=== PATIENT | female | born 1975 | race Caucasian/White ===

== ENCOUNTER → 2016-03-08 | Outpatient (CLI) | payer OTHER ==
--- NOTE | 2016-03-08 10:15 | XR ---
EXAMINATION TYPE: XR hand complete bilateral DATE OF EXAM: 03/08/2016 10:11 AM CLINICAL HISTORY: Bilateral hand pain. Evaluate for arthritis per patient. TECHNIQUE: Frontal, lateral and oblique images of the bilateral hands are obtained. COMPARISON: None. FINDINGS: There is no acute fracture/dislocation evident in either hand. The joint spaces in the santiago ateral hands appear within normal limits without suspicious narrowing or spurring identified. The ov erlying soft tissue appears unremarkable bilaterally. IMPRESSION: Unremarkable study
--- NOTE | 2016-03-08 10:17 | MR ---
EXAMINATION TYPE: MR lumbar spine wo con DATE OF EXAM: 03/08/2016 9:43 AM COMPARISON: NONE HISTORY: Lumbago, pain hips and knees TECHNIQUE: Multiplanar, multisequence images of the lumbar spine were acquired. L1-L2: Normal disc appearance without desiccation. No herniation, protrusion or disc bulging. No ca nal stenosis is present. Foramina are patent bilaterally. L2-L3: Normal disc appearance without desiccation. No herniation, protrusion or disc bulging. No ca nal stenosis is present. Foramina are patent bilaterally. L3-L4: Normal disc appearance without desiccation. No herniation, protrusion or disc bulging. No ca nal stenosis is present. Foramina are patent bilaterally. L4-L5: Broad-based central disc bulging with no canal stenosis or foraminal encroachment. L5-S1: Normal disc appearance without desiccation. No herniation, protrusion or disc bulging. No ca nal stenosis is present. Foramina are patent bilaterally. Lumbar segments are intact. No paraspinal masses are identified. Conus medullaris has a normal appe arance. IMPRESSION: At L4-L5 there is mild broad-based central disc bulging with no foraminal encroachment or canal steno sis.
[2016-03-08 10:43] LABS: Basophils # (A) 0.1 k/uL (0-0.2); Basophils % (A) 1 %; CH 30.1; CHCM 34.9; Eosinophils # (A) 0.3 k/uL (0-0.7); Eosinophils % (A) 4 %; HCT 38.5 % (34.0-46.0); HGB 13.2 gm/dL (11.4-16.0); Luc # (Auto) 0.12; Luc % (Auto) 2; Lymphocytes # (A) 1.9 k/uL (1.0-4.8); Lymphocytes % (A) 28 %; MCH 29.7 pg (25.0-35.0); MCHC 34.3 g/dL (31.0-37.0); MCV 86.5 fL (80.0-100.0); Mean Platelet Volume 6.2; Monocytes # (A) 0.3 k/uL (0-1.0); Monocytes % (A) 5 %; Neutrophils # (A) 4.1 k/uL (1.3-7.7); Neutrophils % (A) 61 %; RBC 4.45 m/uL (3.80-5.40); RDW 12.4 % (11.5-15.5); WBC 6.8 k/uL (3.8-10.6); WBC (Perox) 7.02
[2016-03-08 11:29] LABS: ALT 27 U/L (9-52); AST 16 U/L (14-36); Alkaline Phosphatase 68 U/L (38-126); Anion Gap 11 mmol/L; Blood Urea Nitrogen 13 mg/dL (7-17); C Reactive Protein 12.6 mg/L (<10.0); Calcium 9.2 mg/dL (8.4-10.2); Carbon Dioxide 26 mmol/L (22-30); Chloride 105 mmol/L (98-107); Creatine Kinase 79 U/L (30-135); Glucose 88 mg/dL (74-99); Non-African American GFR(MDRD) >60 (>60 ml/min/1.73 sqM); Sodium 142 mmol/L (137-145); Total Bilirubin 0.7 mg/dL (0.2-1.3); Total Protein 7.1 g/dL (6.3-8.2)
[2016-03-08 11:32] LABS: Rheumatoid Factor, Qnt <9 IU/mL (<12)
[2016-03-08 12:16] LABS: Vitamin B12 304 pg/mL (239-931)
[2016-03-08 14:47] LABS: Erythrocyte Sedimentation Rate 16 mm/hr (0-20)
[2016-03-08 16:05] LABS: Treponemal Ab Non-Reactive (Non-Reactive)
[2016-03-08 17:48] LABS: ANA w/Reflex to Titer NEGATIVE (NEGATIVE)
== END | disposition home or self-care (01) ==
LOC: RADMRIMAIN 08:47
PROVIDERS: ATTEND Psychiatry & Neurology Pain Medicine
DX: M51.26 Other intervertebral disc displacement, lumbar region (principal); M79.641 Pain in right hand; M79.642 Pain in left hand; M25.50 Pain in unspecified joint; M25.40 Effusion, unspecified joint
CPT/HCPCS: 72148; 80053; 82306; 82550; 82607; 84207; 84439; 84443; 84481; 85025; 85652; 86038; 86140; 86225; 86334; 86431; 86780

== ENCOUNTER 2017-01-11 10:48 | Emergency (ER) | payer OTHER ==
[2017-01-11] MEDS ORDERED: ONDANSETRON ODT 4 MG TAB PO STA (11:38)
[2017-01-11] MEDS ORDERED: HYDROmorphone 1 MG/ML 1 ML SYRINGE IM STA (11:38)
[2017-01-11] MEDS ORDERED: KETOROLAC 60 MG/2 ML VIAL IM STA (11:38)
--- NOTE | 2017-01-11 11:50 | ED ---
General Adult HPI - General Chief complaint: Extremity Problem,Nontraumatic Stated complaint: BOTH FEET AND LEFT HAND PAIN Source: patient, RN notes reviewed Mode of arrival: wheelchair Limitations: physical limitation - History of Present Illness Initial comments: This is a 41-year-old female who comes in complaining of chronic foot pain bilaterally. Patient states she's had it for many years and is intermittent in nature. Patient states she would just like a pain shot now she can follow up with a neurologist because the pain is extremely bad per patient states his been no trauma to the feet. Patient states there is no change in the appearance of her feet. Patient states she has a pain contract with Dr. Freeman so she cannot take a prescription home. Patient denies any fever chills per patient denies any new swelling or edema. Patient denies any area of redness. Patient states she is a wound on the left foot that she just left the wound center for and it is doing fine according to the wound doctor. - Related Data Home Medications Medication Instructions Recorded Confirmed Armodafinil [Nuvigil] 150 mg PO DAILY 01/11/17 01/11/17 Cholecalciferol [Vitamin D3] 1,000 unit PO DAILY 01/11/17 01/11/17 Cyclobenzaprine [Flexeril] 10 mg PO HS 01/11/17 01/11/17 Dolutegravir Sodium [Tivicay] 50 mg PO DAILY 01/11/17 01/11/17 Emtricitabine/Tenofovir (Tdf) 1 tab PO DAILY 01/11/17 01/11/17 [Truvada 200 mg-300 mg Tablet] Meloxicam [Mobic] 7.5 mg PO BID PRN 01/11/17 01/11/17 Naproxen [Naprosyn] 500 mg PO Q12HR 01/11/17 01/11/17 Nortriptyline HCl [Pamelor] 50 mg PO HS 01/11/17 01/11/17 traMADol HCL [Ultram] 50 mg PO TID PRN 01/11/17 01/11/17 Allergies Allergy/AdvReac Type Severity Reaction Status Date / Time Penicillins Allergy Swelling Verified 01/11/17 11:18 sulfamethoxazole AdvReac Unknown Verified 01/11/17 11:18 [From Bactrim] trimethoprim [From Bactrim] AdvReac Unknown Verified 01/11/17 11:18 Review of Systems ROS Statement: Those systems with pertinent positive or pertinent negative responses have been documented in the HPI. ROS Other: All systems not noted in ROS Statement are negative. Past Medical History Past Medical History: Asthma Additional Past Medical History / Comment(s): HIV positive, complication from gallbladder surg. in Oct., ended up w/bile leak. History of Any Multi-Drug Resistant Organisms: None Reported Past Surgical History: Section, Cholecystectomy, Tubal Ligation, Uterine Ablation Past Anesthesia/Blood Transfusion Reactions: No Reported Reaction Past Psychological History: No Psychological Hx Reported Smoking Status: Current every day smoker Past Alcohol Use History: None Reported Past Drug Use History: None Reported - Past Family History Mother Family Medical History: No Reported History General Exam - General Exam Comments Initial Comments: GENERAL: Patient is well-developed and well-nourished. Patient is nontoxic and well- hydrated and is in moderate distress. ENT: Neck is soft and supple. No significant lymphadenopathy is noted. Oropharynx is clear. Moist mucous membranes. Neck has full range of motion without eliciting any pain. EYES: The sclera were anicteric and conjunctiva were pink and moist. Extraocular movements were intact and pupils were equal round and reactive to light. Eyelids were unremarkable. SKIN: Skin is clear with no lesions or rashes and otherwise unremarkable. NEUROLOGIC: Patient is alert and oriented x3. Cranial nerves II through XII are grossly intact. Motor and sensory are also intact. Normal speech, volume and content. Symmetrical smile. MUSCULOSKELETAL: Normal extremities with adequate strength and full range of motion. 2+ swelling bilaterally patient's feet are are tender to touch. Patient states this is chronic LYMPHATICS: No significant lymphadenopathy is noted PSYCHIATRIC: Normal psychiatric evaluation. Limitations: physical limitation Course Vital Signs 01/11/17 10:58 Temperature 97.8 F Pulse Rate 109 H Respiratory 17 Rate Blood Pressure 144/77 O2 Sat by Pulse 100 Oximetry Disposition Clinical Impression: Chronic foot pain Disposition: HOME SELF-CARE Condition: Good Instructions: Chronic Pain (ED) Referrals: Juanita Angel MD [Primary Care Provider] - 1-2 days Time of Disposition: 11:59
[2017-01-11 12:32] VITALS: BP 119/69; PULSE 100; RESP 16; TEMP 97.9
== END 2017-01-11 12:30 | disposition home or self-care (01) ==
LOC: EC 10:48
DX: M79.671 Pain in right foot (principal); M79.672 Pain in left foot; G89.29 Other chronic pain; Z21 Asymptomatic human immunodeficiency virus [HIV] infection status; F17.200 Nicotine dependence, unspecified, uncomplicated; Z79.1 Long term (current) use of non-steroidal anti-inflammatories (NSAID); Z79.899 Other long term (current) drug therapy; Z88.0 Allergy status to penicillin; Z88.2 Allergy status to sulfonamides
CPT/HCPCS: 99283; 96372 ×2; J1885; J1170

== ENCOUNTER → 2017-11-10 | Outpatient (CLI) | payer OTHER ==
--- NOTE | 2017-11-10 19:25 | MR ---
EXAMINATION TYPE: MR brain wo/w con DATE OF EXAM: 11/10/2017 COMPARISON: None HISTORY: Involuntary movements TECHNIQUE: Multiplanar, multisequence images of the brain and brainstem is performed without and with IV contras t, utilizing 8.5 mL intravenous Gadavist . FINDINGS: Craniovertebral junction is normal. Pituitary is normal. Diffusion-weighted imaging is performed. No suspicious hyperintensity is present suggest acute intrac ranial change. Normal vascular flow voids are within the visualized intracranial cerebral vasculature. There is some mild increased signal on T2 and inversion recovery weighted sequences within knee brainstem and left pasty. This could be some microvascular ischemic change. Couple of punctate hyperintensities are with in the right beck radiata. There is subcortical white matter change in the right centrum semiovale. Series 501 image 24. Signal within the brain otherwise appears unremarkable. Postcontrast imaging is performed. No suspicious enhancement is evident. Note is made of some subcutaneous nodules near the vertex, correlate for sebaceous cysts. IMPRESSION: Mild white matter signal change which is nonspecific. Chronic white matter ischemic hedrick es most likely within the differential. Multiple sclerosis could be considered. This is somewhat more focal within the brainstem. Correlate with symptoms.
== END | disposition home or self-care (01) ==
LOC: RADMRIMAIN 11:33
PROVIDERS: ATTEND Psychiatry & Neurology Neurology
DX: R90.82 White matter disease, unspecified (principal); Z88.0 Allergy status to penicillin
CPT/HCPCS: 70553; A9581

== ENCOUNTER 2017-12-09 10:33 | Emergency (ER) | payer OTHER ==
[2017-12-09 10:39] VITALS: BP 154/95; PULSE 85; RESP 16; TEMP 98.3
[2017-12-09] MEDS ORDERED: PROPARACAINE 0.5% OPHTH DROPS 15 ML BTL BOTH EYES STA (10:42)
--- NOTE | 2017-12-09 11:15 | ED ---
General Adult HPI - General Chief complaint: Eye Problems Stated complaint: Eye infection Time Seen by Provider: 12/09/17 10:42 Source: patient, RN notes reviewed, old records reviewed Mode of arrival: ambulatory Limitations: no limitations - History of Present Illness Initial comments: 42-year-old female presenting with painful and swollen left eye. Patient's symptoms began 3 days prior to presentation. She has been seen by her primary care physician who prescribed tobramycin eyedrops. She was reevaluated yesterday and told to follow-up with ophthalmology. This morning she presented to an outside emergency department who again told her to follow-up with ophthalmology. Patient is presenting to this emergency department for reevaluation. She denies fever or chills. Denies headache. Complains of pain and swelling in the left eye. Denies significant vision changes. Denies symptoms in her right eye. Denies previous issues with this eye. She is HIV positive and has been compliant with her antiviral medication. - Related Data Home Medications Medication Instructions Recorded Confirmed Cholecalciferol [Vitamin D3] 1,000 unit PO DAILY 01/11/17 12/09/17 Meloxicam [Mobic] 7.5 mg PO BID PRN 01/11/17 12/09/17 Nortriptyline HCl [Pamelor] 100 mg PO HS 01/11/17 12/09/17 traMADol HCL [Ultram] 50 mg PO BID 01/11/17 12/09/17 Probenecid [Benemid] 500 mg PO BID 02/03/17 12/09/17 Elviteg/Cob/Emtri/Tenof Alafen 1 tab PO DAILY 12/09/17 12/09/17 [Genvoya Tablet] Furosemide [Lasix] 20 mg PO DAILY 12/09/17 12/09/17 Tobramycin 0.3% Ophth Soln [Tobrex 2 drop LEFT EYE QID 12/09/17 12/09/17 0.3% Ophth Soln] traMADol HCL [Ultram] 100 mg PO HS 12/09/17 12/09/17 Previous Rx's Medication Instructions Recorded Clindamycin [Cleocin] 300 mg PO Q6H #40 capsule 12/09/17 Ibuprofen [Motrin] 600 mg PO Q8HR PRN #24 tab 12/09/17 Allergies Allergy/AdvReac Type Severity Reaction Status Date / Time naproxen [From Naprosyn] Allergy Rash/Hives Verified 12/09/17 11:21 Penicillins Allergy Swelling Verified 12/09/17 11:21 sulfamethoxazole AdvReac Unknown Verified 12/09/17 11:21 [From Bactrim] trimethoprim [From Bactrim] AdvReac Unknown Verified 12/09/17 11:21 Review of Systems ROS Statement: Those systems with pertinent positive or pertinent negative responses have been documented in the HPI. ROS Other: All systems not noted in ROS Statement are negative. Past Medical History Past Medical History: Asthma Additional Past Medical History / Comment(s): HIV positive, complication from gallbladder surg. in Oct., ended up w/bile leak. History of Any Multi-Drug Resistant Organisms: None Reported Past Surgical History: Section, Cholecystectomy, Tubal Ligation, Uterine Ablation Past Anesthesia/Blood Transfusion Reactions: No Reported Reaction Past Psychological History: No Psychological Hx Reported Smoking Status: Current every day smoker Past Alcohol Use History: None Reported Past Drug Use History: None Reported - Past Family History Mother Family Medical History: No Reported History General Exam Limitations: no limitations General appearance: alert, in no apparent distress Head exam: Present: atraumatic, normocephalic Eye exam: Present: PERRL, EOMI (Extraocular motions are intact, there is mild pain in the left eye with movement.), conjunctival injection (Conjunctival chemosis and hemorrhage), periorbital swelling (Mild soft tissue swelling). Absent: nystagmus Neck exam: Present: normal inspection, tenderness, full ROM. Absent: meningismus Respiratory exam: Present: normal lung sounds bilaterally, respiratory distress Cardiovascular Exam: Present: regular rate, normal rhythm GI/Abdominal exam: Present: soft. Absent: distended, tenderness Extremities exam: Present: normal inspection, normal capillary refill Back exam: Present: normal inspection. Absent: full ROM, tenderness Course Vital Signs 12/09/17 10:36 Temperature 98.3 F Pulse Rate 85 Respiratory 16 Rate Blood Pressure 154/95 O2 Sat by Pulse 99 Oximetry Medical Decision Making - Medical Decision Making Eye exam: The patient has 20/50 vision in the left eye, 20/20/50 in the right eye, and 20/40 bilateral. Intraocular pressure in the left eye is 12 which is normal. On exam there is pronounced chemosis and some conjunctival hemorrhage. Anterior chamber appears clear, pupil is reactive, with fluorescein staining there is no corneal uptake. Extraocular motions are intact. Given the patient' s HIV status I did discuss this case with ophthalmology on-call, Dr. Velasco, feels patient is stable for outpatient follow-up. Recommends oral antibiotics for soft tissue swelling, Motrin for pain, and cold compresses. Disposition Clinical Impression: Periorbital cellulitis, Subconjunctival hemorrhage of left eye, Chemosis of conjunctiva of both eyes, Chemosis of left conjunctiva Disposition: HOME SELF-CARE Condition: Good Instructions: Conjunctivitis (ED), Periorbital Cellulitis in Adults (ED) Prescriptions: Clindamycin [Cleocin] 300 mg PO Q6H #40 capsule Ibuprofen [Motrin] 600 mg PO Q8HR PRN #24 tab PRN Reason: Pain Is patient prescribed a controlled substance at d/c from ED?: No Referrals: Juanita Angel MD [Primary Care Provider] - 1-2 days Nils Velasco MD [STAFF PHYSICIAN] - 1-2 days Time of Disposition: 12:01
== END 2017-12-09 12:04 | disposition home or self-care (01) ==
LOC: EC 10:33
DX: H11.32 Conjunctival hemorrhage, left eye (principal); H11.423 Conjunctival edema, bilateral; L03.213 Periorbital cellulitis; F17.200 Nicotine dependence, unspecified, uncomplicated; Z21 Asymptomatic human immunodeficiency virus [HIV] infection status; Z79.899 Other long term (current) drug therapy; Z88.6 Allergy status to analgesic agent; Z88.0 Allergy status to penicillin; Z88.2 Allergy status to sulfonamides
CPT/HCPCS: 99283

== ENCOUNTER → 2017-12-12 | Outpatient (CLI) | payer OTHER ==
[2017-12-12 09:52] LABS: Basophils # (A) 0.1 k/uL (0-0.2); Basophils % (A) 1 %; Eosinophils # (A) 0.2 k/uL (0-0.7); Eosinophils % (A) 4 %; HCT 39.8 % (34.0-46.0); HGB 13.4 gm/dL (11.4-16.0); Lymphocytes # (A) 1.5 k/uL (1.0-4.8); Lymphocytes % (A) 23 %; MCH 29.5 pg (25.0-35.0); MCHC 33.7 g/dL (31.0-37.0); MCV 87.5 fL (80.0-100.0); Mean Platelet Volume 6.1; Monocytes # (A) 0.3 k/uL (0-1.0); Monocytes % (A) 5 %; Neutrophils # (A) 4.3 k/uL (1.3-7.7); Neutrophils % (A) 66 %; Platelet Count 289 k/uL (150-450); RBC 4.55 m/uL (3.80-5.40); RDW 14.3 % (11.5-15.5); WBC 6.5 k/uL (3.8-10.6)
[2017-12-12 10:14] LABS: Blood Urea Nitrogen 12 mg/dL (7-17)
--- NOTE | 2017-12-12 11:14 | CT ---
EXAMINATION TYPE: CT facial bones w con DATE OF EXAM: 12/12/2017 COMPARISON: MR brain 11/10/2017 HISTORY: Lt orbital cellulitis CT DLP: 578 mGycm Automated exposure control for dose reduction was used. CONTRAST: CT scan of the facial bones is performed with IV Contrast, patient injected with 100 mL of Isovue 300 . TECHNIQUE: CT scan of the sinuses is performed without contrast, axial images are obtained, coronal r eformatted images are also reviewed. FINDINGS: The paranasal sinuses including the frontal, ethmoid, sphenoid, and maxillary sinuses bila terally are well-aerated without abnormal opacification. The ostiomeatal complex is patent bilateral ly on the coronal images. Visualized portion of mastoid air cells show no abnormal opacification. The globes are intact bilate rally. Towards the convexity of the left of midline there is a probable sebaceous cyst within the sca lp measuring 15 mm possible partial calcification. The orbits show symmetric appearance. No intraconal mass or inflammatory change. Globes are symmetric and unremarkable. Question some mild inflammatory change at the level of the preseptal location of t he left orbit. IMPRESSION: The sinuses are clear and the ostiomeatal complex is patent bilaterally. No orbital absc ess evident.
== END ==
LOC: RADCTMAIN 09:04
PROVIDERS: ATTEND Optometrist
DX: H05.012 Cellulitis of left orbit (principal)
CPT/HCPCS: 82565; 84520; 85025; 70487; 36415; Q9967

== ENCOUNTER → 2018-02-13 | Outpatient (CLI) | payer OTHER ==
[2018-02-15 12:41] LABS: IgG - CSF 1.9 mg/dL (0.0 - 3.4); IgG/Albumin Index (CSF) 0.47 (0.00 - 0.77); Immunoglobulin G 887 mg/dL (700 - 1600)
== END | disposition home or self-care (01) ==
LOC: LABWHC1 09:49
PROVIDERS: ATTEND Psychiatry & Neurology Pain Medicine
DX: R90.82 White matter disease, unspecified (principal)
CPT/HCPCS: 36415; 82040; 82042; 82784; 83916

== ENCOUNTER → 2018-03-30 | Outpatient (CLI) | payer OTHER ==
[2018-03-30 10:09] LABS: Basophils # (A) 0.1 k/uL (0-0.2); Basophils % (A) 1 %; Eosinophils # (A) 0.5 k/uL (0-0.7); Eosinophils % (A) 7 %; HCT 37.7 % (34.0-46.0); HGB 12.2 gm/dL (11.4-16.0); Lymphocytes % (A) 30 %; MCH 28.4 pg (25.0-35.0); MCHC 32.3 g/dL (31.0-37.0); MCV 87.8 fL (80.0-100.0); Mean Platelet Volume 6.2; Monocytes # (A) 0.3 k/uL (0-1.0); Monocytes % (A) 5 %; Neutrophils # (A) 3.8 k/uL (1.3-7.7); Neutrophils % (A) 55 %; Platelet Count 211 k/uL (150-450); RDW 14.5 % (11.5-15.5); WBC 6.9 k/uL (3.8-10.6)
[2018-03-30 11:06] LABS: Erythrocyte Sedimentation Rate 17 mm/hr (0-20)
[2018-03-30 17:55] LABS: Anion Gap 6.3 mmol/L (4.00-12.00); C Reactive Protein 1.6 mg/dL (0.0-0.8); Carbon Dioxide 28.7 mmol/L (21.6-31.8); Potassium 4.6 mmol/L (3.5-5.5)
[2018-03-31 11:08] LABS: T4/T8 Ratio (CD4:CD8) 1.7 (1.0-3.7)
[2018-04-02 14:18] LABS: HIV-1 RNA Not detected (Not detected); HIV-1 RNA, Quant <40 Copies/mL (<40)
== END ==
LOC: LABWHC1 09:11
PROVIDERS: ATTEND Internal Medicine Infectious Disease
DX: M25.50 Pain in unspecified joint (principal); B20 Human immunodeficiency virus [HIV] disease
CPT/HCPCS: 36415; 80048; 85025; 85652; 86140; 86360; 87536

== ENCOUNTER → 2018-07-02 | Outpatient (CLI) | payer OTHER ==
[2018-07-02 17:46] LABS: Iron Saturation 13.33 (12.00-45.00)
[2018-07-02 17:47] LABS: Anti-DNA, DS unit <1.0 IU/mL; DNA Double-Stranded NEGATIVE (NEGATIVE); RNP <0.2 AI; Scleroderma SC-70 Ab <0.2 AI
[2018-07-02 17:54] LABS: Folate, Serum 9.1 ng/mL
[2018-07-03 13:25] LABS: Histone Antibody 0.2 UNITS (<1.0)
== END | disposition home or self-care (01) ==
LOC: LAB 08:06
PROVIDERS: ATTEND Psychiatry & Neurology Neurology
DX: M25.50 Pain in unspecified joint (principal); R53.83 Other fatigue
CPT/HCPCS: 82607; 82728; 82746; 83516; 83540; 83550; 84207; 84425; 84439; 84443; 84466; 84481; 84591; 85652; 86038; 86140; 86200; 86225; 86235

== ENCOUNTER → 2018-07-31 | Outpatient (CLI) | payer OTHER ==
[2018-07-31 09:05] LABS: Basophils # (A) 0.1 k/uL (0-0.2); Basophils % (A) 1 %; Eosinophils # (A) 0.6 k/uL (0-0.7); Eosinophils % (A) 8 %; HCT 40.2 % (34.0-46.0); HGB 13.4 gm/dL (11.4-16.0); Lymphocytes # (A) 1.7 k/uL (1.0-4.8); Lymphocytes % (A) 23 %; MCHC 33.3 g/dL (31.0-37.0); MCV 87.2 fL (80.0-100.0); Mean Platelet Volume 6.8; Monocytes # (A) 0.4 k/uL (0-1.0); Monocytes % (A) 5 %; Neutrophils # (A) 4.5 k/uL (1.3-7.7); Neutrophils % (A) 61 %; Platelet Count 235 k/uL (150-450); RBC 4.61 m/uL (3.80-5.40); RDW 14.2 % (11.5-15.5); WBC 7.3 k/uL (3.8-10.6)
[2018-07-31 16:36] LABS: Albumin 4.5 g/dL (3.80-4.90); Albumin/Globulin Ratio 2.25 (1.60-3.17); Anion Gap 7.8 mmol/L (4.00-12.00); Calcium 9.3 mg/dL (8.7-10.3); Carbon Dioxide 25.2 mmol/L (21.6-31.8); Potassium 3.9 mmol/L (3.5-5.5); Total Bilirubin 0.6 mg/dL (0.3-1.2); Total Protein 6.5 g/dL (6.2-8.2)
== END ==
LOC: LABWHC1 08:21
PROVIDERS: ATTEND Psychiatry & Neurology Pain Medicine
DX: Z51.81 Encounter for therapeutic drug level monitoring (principal); R79.9 Abnormal finding of blood chemistry, unspecified
CPT/HCPCS: 36415; 80053; 85025

== ENCOUNTER 2018-12-01 03:53 | Emergency (ER) | payer OTHER ==
--- NOTE | 2018-12-01 04:17 | ED ---
ENT HPI - General Chief complaint: Dental/Oral Stated complaint: Dental Abscess Time Seen by Provider: 12/01/18 04:16 Source: patient Mode of arrival: ambulatory Limitations: no limitations - History of Present Illness Initial comments: Romana is a 43-year-old female past medical history of HIV which is well controlled with oral medications. Patient reports that her viral load is undetectable and her CD4 count was normal. Patient presents the emergency department today for evaluation of dental pain. Patient has multiple dental caries and broken teeth. Patient states over the past 2 days she's noticed progressive swelling of her right lower jaw around the broken teeth with significant pain. Patient's been taking her home pain medications with no relief. Patient came to the ER today for evaluation of possible dental infection. - Related Data Home Medications Medication Instructions Recorded Confirmed Meloxicam [Mobic] 7.5 mg PO BID PRN 01/11/17 12/01/18 Nortriptyline HCl [Pamelor] 100 mg PO HS 01/11/17 12/01/18 traMADol HCL [Ultram] 50 mg PO BID 01/11/17 12/01/18 Probenecid [Benemid] 500 mg PO BID 02/03/17 12/01/18 Elviteg/Cob/Emtri/Tenof Alafen 1 tab PO DAILY 12/09/17 12/01/18 [Genvoya Tablet] Furosemide [Lasix] 20 mg PO DAILY 12/09/17 12/01/18 Previous Rx's Medication Instructions Recorded Ibuprofen [Motrin] 600 mg PO Q8HR PRN #24 tab 12/09/17 Clindamycin [Cleocin] 450 mg PO Q6H #120 capsule 12/01/18 Allergies Allergy/AdvReac Type Severity Reaction Status Date / Time naproxen [From Naprosyn] Allergy Rash/Hives Verified 12/09/17 11:21 Penicillins Allergy Swelling Verified 12/09/17 11:21 sulfamethoxazole AdvReac Unknown Verified 12/09/17 11:21 [From Bactrim] trimethoprim [From Bactrim] AdvReac Unknown Verified 12/09/17 11:21 Review of Systems ROS Statement: Those systems with pertinent positive or pertinent negative responses have been documented in the HPI. ROS Other: All systems not noted in ROS Statement are negative. Past Medical History Past Medical History: Asthma Additional Past Medical History / Comment(s): HIV positive, complication from gallbladder surg. in Oct., ended up w/bile leak. History of Any Multi-Drug Resistant Organisms: None Reported Past Surgical History: Section, Cholecystectomy, Hernia Repair, Tubal Ligation, Uterine Ablation Past Anesthesia/Blood Transfusion Reactions: No Reported Reaction Past Psychological History: No Psychological Hx Reported Smoking Status: Current every day smoker Past Alcohol Use History: None Reported Past Drug Use History: None Reported - Past Family History Mother Family Medical History: No Reported History General Exam - General Exam Comments Initial Comments: Physical Exam GENERAL: Patient is well-developed and well-nourished. Patient is nontoxic and well-hydrated and is in no distress. HENT: Normocephalic, Atraumatic. Teeth 29-32 fractured with carries - surrounding erythema Obvious abscess EYES: PERRL, EOMI PULMONARY: Unlabored respirations. CARDIOVASCULAR: RRR ABDOMEN: Nondistended SKIN: Skin is clear with no lesions or rashes and otherwise unremarkable. : Deferred NEUROLOGIC: Patient is alert and oriented x3. Moving all extremities spontaneously MUSCULOSKELETAL: Normal extremities with adequate strength and full range of motion. No lower extremity swelling or edema. No calf tenderness. PSYCHIATRIC: Normal psychiatric evaluation. Limitations: no limitations Course Vital Signs 12/01/18 12/01/18 03:58 05:32 Temperature 97.4 F L 97.6 F Pulse Rate 58 L 60 Respiratory 20 18 Rate Blood Pressure 187/92 164/72 O2 Sat by Pulse 98 98 Oximetry Procedures - Nerve Block Consent Obtained: verbal consent Local Anesthetic Used: Marcaine 0.5% Side: right Intraoral Nerve Block: inferior alveolar Procedure Successful: Yes Complications: none Patient Tolerated Procedure: well Medical Decision Making - Medical Decision Making Was seen and evaluated history is obtained from patient The patient has an ALLERGY to penicillin and therefore will be treated with clin damycin for dental infection Risks and benefits of dental block including benefit of analgesia and risk of bleeding, infection, permanent nerve damage discussed with the patient. Patient would like to receive a dental block Nerve block was performed and was successful patient had significant relief of her discomfort and was comfortable with plan for discharge home and outpatient follow-up patient was referred to the dental clinic Disposition Clinical Impression: Dental caries, Fracture of tooth Disposition: HOME SELF-CARE Condition: Stable Instructions (If sedation given, give patient instructions): Dental Abscess (ED), Toothache (ED) Additional Instructions: Please follow up with the [facility]. [address] [place] [address]. Phone number for new patients or [phone] for existing patients. [facility]. Must pay for x-rays then services are free. Call for an appoitnment. Prescriptions: Clindamycin [Cleocin] 450 mg PO Q6H #120 capsule Is patient prescribed a controlled substance at d/c from ED?: No Referrals: Juanita Angel MD [Primary Care Provider] - 1-2 days
[2018-12-01] MEDS ORDERED: BUPIVACAINE (PF) 0.5% 30 ML VIAL SQ STA (04:34)
[2018-12-01] MEDS ORDERED: LIDOCAINE 1% INJ 10MG/ML (20 ML MDV) SQ ONE (04:34)
[2018-12-01] MEDS ORDERED: CLINDAMYCIN 150 MG CAP PO STA (04:47)
[2018-12-01 05:35] VITALS: BP 164/72; PULSE 60; RESP 18; TEMP 97.6
== END 2018-12-01 05:35 | disposition home or self-care (01) ==
LOC: EC 03:53
DX: K02.9 Dental caries, unspecified (principal); S02.5XXA Fracture of tooth (traumatic), initial encounter for closed fracture; K04.7 Periapical abscess without sinus; F17.200 Nicotine dependence, unspecified, uncomplicated; Z21 Asymptomatic human immunodeficiency virus [HIV] infection status; Z79.899 Other long term (current) drug therapy; Z88.0 Allergy status to penicillin; Z88.1 Allergy status to other antibiotic agents; Z88.2 Allergy status to sulfonamides; Z88.6 Allergy status to analgesic agent; X58.XXXA Exposure to other specified factors, initial encounter
CPT/HCPCS: 99282; 64400; J2001

== ENCOUNTER 2018-12-01 13:55 | Observation (INO) | payer OTHER ==
[2018-12-01 15:03] LABS: Basophils # (A) 0.1 k/uL (0-0.2); Basophils % (A) 1 %; Eosinophils # (A) 0.3 k/uL (0-0.7); Eosinophils % (A) 3 %; HCT 39.1 % (34.0-46.0); HGB 13.6 gm/dL (11.4-16.0); Lymphocytes # (A) 1.8 k/uL (1.0-4.8); Lymphocytes % (A) 16 %; MCHC 34.9 g/dL (31.0-37.0); MCV 88.6 fL (80.0-100.0); Mean Platelet Volume 5.2; Monocytes # (A) 0.5 k/uL (0-1.0); Monocytes % (A) 5 %; Neutrophils # (A) 8.9 k/uL (1.3-7.7); Neutrophils % (A) 76 %; Platelet Count 270 k/uL (150-450); RBC 4.41 m/uL (3.80-5.40); RDW 13.7 % (11.5-15.5); WBC 11.7 k/uL (3.8-10.6)
--- NOTE | 2018-12-01 15:03 | ED ---
ENT HPI - General Source: patient Mode of arrival: ambulatory Limitations: no limitations <Judit Farfan - Last Filed: 12/01/18 17:30> <Chelo Gabriel - Last Filed: 12/04/18 22:54> - General Chief complaint: Dental/Oral Stated complaint: dental abscess Time Seen by Provider: 12/01/18 14:00 - History of Present Illness Initial comments: Patient is a 43-year-old female with past medical history of HIV which is well controlled on oral medications, presenting to the emergency Department with complaints of worsening dental pain x 3 days. Patient was seen in the ER early this morning for same complaint and was started on oral clindamycin and follow up with the dental clinic. Patient did take one dose. Patient states returns today for worsening of her swelling and pain. Patient denies any trouble breath ing or swallowing at this time. Patient denies drooling. Patient denies fever, chills. States she is unable to eat secondary to the swelling and pain. Patient does report taking Ultram at home for pain without significant improvement in symptoms. Patient reports that her viral load is undetectable and her CD4 count was normal. Patient denies any other complaints at this time. Upon arrival to ER, vital signs are stable. (Judit Farfan) - Related Data Home Medications Medication Instructions Recorded Confirmed Nortriptyline HCl [Pamelor] 100 mg PO HS 01/11/17 12/01/18 traMADol HCL [Ultram] 50 mg PO QID 01/11/17 12/01/18 Probenecid [Benemid] 500 mg PO BID 02/03/17 12/01/18 Elviteg/Cob/Emtri/Tenof Alafen 1 tab PO DAILY 12/09/17 12/01/18 [Genvoya Tablet] Cholecalciferol [Vitamin D3 (25 1,000 unit PO DAILY 12/01/18 12/01/18 Mcg = 1000 Iu)] Loratadine [Claritin] 10 mg PO DAILY 12/01/18 12/01/18 Meloxicam [Mobic] 15 mg PO DAILY 12/01/18 12/01/18 Montelukast [Singulair] 10 mg PO HS 12/01/18 12/01/18 Orphenadrine [Norflex] 100 mg PO BID PRN 12/01/18 12/01/18 Previous Rx's Medication Instructions Recorded Clindamycin HCl [Cleocin] 600 mg PO Q8H 10 Days #60 cap 12/03/18 Allergies Allergy/AdvReac Type Severity Reaction Status Date / Time naproxen [From Naprosyn] Allergy Rash/Hives Verified 12/01/18 17:06 Penicillins Allergy Swelling Verified 12/01/18 17:06 sulfamethoxazole AdvReac Unknown Verified 12/01/18 17:06 [From Bactrim] trimethoprim [From Bactrim] AdvReac Unknown Verified 12/01/18 17:06 Review of Systems ROS Other: All systems not noted in ROS Statement are negative. <Judit Farfan - Last Filed: 12/01/18 17:30> ROS Other: All systems not noted in ROS Statement are negative. <Chelo Gabriel - Last Filed: 12/04/18 22:54> ROS Statement: Those systems with pertinent positive or pertinent negative responses have been documented in the HPI. Past Medical History Past Medical History: Asthma Additional Past Medical History / Comment(s): HIV positive, complication from gallbladder surg. in Oct., ended up w/bile leak. History of Any Multi-Drug Resistant Organisms: None Reported Past Surgical History: Section, Cholecystectomy, Hernia Repair, Tubal Ligation, Uterine Ablation Past Anesthesia/Blood Transfusion Reactions: No Reported Reaction Past Psychological History: No Psychological Hx Reported Smoking Status: Current every day smoker Past Alcohol Use History: None Reported Past Drug Use History: None Reported - Past Family History Mother Family Medical History: No Reported History <Judit Farfan - Last Filed: 12/01/18 17:30> General Exam Limitations: no limitations <Judit Farfan - Last Filed: 12/01/18 17:30> - General Exam Comments Initial Comments: GENERAL: Well-appearing, well-nourished and in no acute distress. HEAD: Atraumatic, normocephalic. EYES: Pupils equal round and reactive to light, extraocular movements intact, sclera anicteric, conjunctiva are normal. ENT: TMs normal, nares patent, oropharynx clear without exudates. Moist mucous membranes. No drooling. Teeth #29 and 30 with obvious tooth fractures and dental caries, surrounding erythema NECK: Normal range of motion, supple without lymphadenopathy or JVD. Mild swelling evident just below the right jawline into the right side of the neck. LUNGS: Breath sounds clear to auscultation bilaterally and equal. No wheezes rales or rhonchi. HEART: Regular rate and rhythm without murmurs, rubs or gallops. ABDOMEN: Soft, nontender, normoactive bowel sounds. No guarding, no rebound. No masses appreciated. : Deferred EXTREMITIES: Normal range of motion, no pitting or edema. No clubbing or cyanosis. NEUROLOGICAL: Cranial nerves II through XII grossly intact. Normal speech, normal gait. PSYCH: Normal mood, normal affect. SKIN: Warm, Dry, normal turgor, no rashes or lesions noted. (Judit Farfan) Course Vital Signs 12/01/18 12/01/18 13:56 17:43 Temperature 97.9 F Pulse Rate 77 78 Respiratory 18 16 Rate Blood Pressure 141/93 136/76 O2 Sat by Pulse 98 99 Oximetry Medical Decision Making - Lab Data Result diagrams: 12/01/18 14:43 12/01/18 14:43 <Judit Farfan - Last Filed: 12/01/18 17:30> - Lab Data Result diagrams: 12/03/18 07:36 12/03/18 07:36 <Chelo Gabriel - Last Filed: 12/04/18 22:54> - Medical Decision Making Patient is a 43-year-old female presenting with dental abscess 3 days. Patient was seen in the ER earlier this morning for same complaint was started on oral: The myosin. Patient returns today for severe increase in swelling and pain. Patient has past medical history of HIV is well controlled. I the signs are stable upon arrival, afebrile. On exam patient has severe right mandibular swelling and mild erythema. Teeth 29 and 30 are decayed and surrounding erythema. CBC shows slight leukocytosis of 11.7, CMP is normal. CRP is 23.2. Soft tissue neck CT was performed and shows right sided mandibular and some mandibular soft tissue swelling consistent with cellulitis. No abscess seen. Right maxillary sinusitis. Patient was given pain control. Case discussed with Dr. Gabriel who evaluated the patient and is in agreement with plan of care. Patient will be admitted for IV antibiotics and pain control. Dr. Avila accepted the patient. Patient was started on clindamycin IV. (Judit Farfan) I was available for consultation in the emergency department. The history and physical exam were done by the midlevel provider. [facility] I reviewed the case with the midlevel provider and based on their presentation of the patient, I agree with the assessment, medical decision making and plan of care as documented. I evaluated the patient myself. As she has rapid progression of her swelling, I did recommend admission to the hospital. Chart was dictated using [employer] dictation software. Attempts were made to correct any dictation errors however some typographical errors may persist. (Chelo Gabriel) - Lab Data Lab Results 12/01/18 12/01/18 12/01/18 Range/Units 14:43 14:43 14:43 WBC 11.7 H (3.8-10.6) k/uL RBC 4.41 (3.80-5.40) m/uL Hgb 13.6 (11.4-16.0) gm/dL Hct 39.1 (34.0-46.0) % MCV 88.6 (80.0-100.0) fL MCH 31.0 (25.0-35.0) pg MCHC 34.9 (31.0-37.0) g/dL RDW 13.7 (11.5-15.5) % Plt Count 270 (150-450) k/uL Neutrophils % 76 % Lymphocytes % 16 % Monocytes % 5 % Eosinophils % 3 % Basophils % 1 % Neutrophils # 8.9 H (1.3-7.7) k/uL Lymphocytes # 1.8 (1.0-4.8) k/uL Monocytes # 0.5 (0-1.0) k/uL Eosinophils # 0.3 (0-0.7) k/uL Basophils # 0.1 (0-0.2) k/uL ESR 15 (0-20) mm/hr Sodium 138 (137-145) mmol/L Potassium 4.4 (3.5-5.1) mmol/L Chloride 105 (98-107) mmol/L Carbon Dioxide 24 (22-30) mmol/L Anion Gap 9 mmol/L BUN 13 (7-17) mg/dL Creatinine 0.55 (0.52-1.04) mg/dL Est GFR (CKD-EPI)AfAm >90 (>60 ml/min/1.73 sqM) Est GFR (CKD-EPI)NonAf >90 (>60 ml/min/1.73 sqM) Glucose 93 (74-99) mg/dL Plasma Lactic Acid Fredrick 1.2 (0.7-2.0) mmol/L Calcium 9.1 (8.4-10.2) mg/dL Total Bilirubin 0.7 (0.2-1.3) mg/dL AST 35 (14-36) U/L ALT 28 (9-52) U/L Alkaline Phosphatase 92 (38-126) U/L C-Reactive Protein 23.2 H (<10.0) mg/L Total Protein 7.0 (6.3-8.2) g/dL Albumin 4.0 (3.5-5.0) g/dL Disposition Is patient prescribed a controlled substance at d/c from ED?: No Decision Date: 12/01/18 Decision Time: 16:51 <Judit Farfan - Last Filed: 12/01/18 17:30> <Chelo Gabriel - Last Filed: 12/04/18 22:54> Clinical Impression: Dental abscess, Facial cellulitis Disposition: ADMITTED IP TO THIS HOSP Condition: Good
[2018-12-01 15:09] LABS: ALT 28 U/L (9-52); AST 35 U/L (14-36); African American GFR (CKD) >90 (>60 ml/min/1.73 sqM); Alkaline Phosphatase 92 U/L (38-126); Anion Gap 9 mmol/L; Blood Urea Nitrogen 13 mg/dL (7-17); C Reactive Protein 23.2 mg/L (<10.0); Calcium 9.1 mg/dL (8.4-10.2); Carbon Dioxide 24 mmol/L (22-30); Chloride 105 mmol/L (98-107); Glucose 93 mg/dL (74-99); Potassium 4.4 mmol/L (3.5-5.1); Sodium 138 mmol/L (137-145); Total Bilirubin 0.7 mg/dL (0.2-1.3)
[2018-12-01] MEDS ORDERED: MORPHINE SULFATE 4 MG/ML SYRINGE IVP STA (15:17)
--- NOTE | 2018-12-01 15:32 | CT ---
EXAMINATION TYPE: CT soft tissue neck w con DATE OF EXAM: 12/01/2018 3:09 PM COMPARISON: None HISTORY: Right sided facial/mandibular swelling and pain. CT DLP: 283.9 mGycm Automated exposure control for dose reduction was used. CONTRAST: CT scan of the neck is performed following with IV Contrast, patient injected with 100ml mL of Isovue 300. Axial images are obtained, coronal and sagittal reformatted images are reviewed. FINDINGS: Superior mediastinum appears normal. There is normal branching pattern of the great vessels on the ao rtic arch. Thyroid gland is symmetric. There is contrast opacification of the vertebral arteries and the common internal and external carotid arteries. There is normal contrast opacification of the jugu lar veins. The trachea appears normal. Epiglottis appears normal. Subglottic trachea appears normal. Tonsils appear normal. There is symmetric parotid glands. Submandibular salivary glands are symmetric . There are submandibular bilateral lymph nodes that measure up to 11 mm. There is significant subcut aneous edema around the mandible on the right side. There is no discrete fluid collection. The mandib ular ring is intact. Maxilla is intact. Temporomandibular joints appear normal. Zygomatic arches are normal. There is fluid level right maxillary sinus. I see no bony destructive process.: The tongue ap pears normal. Adenoids appear normal. IMPRESSION: Right side. Mandibular and submandibular soft tissue swelling consistent with cellulitis and phlegmon. Minimal submandibular lymphadenopathy. No abscess. Right maxillary sinusitis.
[2018-12-01 16:00] LABS: Erythrocyte Sedimentation Rate 15 mm/hr (0-20)
[2018-12-01] MEDS ORDERED: ONDANSETRON 4 MG/2 ML VIAL IVP STA (16:25)
[2018-12-01] MEDS ORDERED: NALOXONE 0.4 MG/ML 1 ML VIAL IV PRN (16:46)
[2018-12-01] MEDS ORDERED: ACETAMINOPHEN TAB 325 MG TAB PO PRN (16:46)
[2018-12-01] MEDS ORDERED: traMADol 50 MG TAB PO PRN (16:46)
[2018-12-01] MEDS ORDERED: ONDANSETRON 4 MG/2 ML VIAL IVP PRN (16:46)
[2018-12-01] MEDS ORDERED: MORPHINE SULFATE 2 MG/ML SYRINGE IVP ONE (16:49)
[2018-12-01] MEDS: SODIUM CHLORIDE 0.9% 1,000 ML IV SCH (17:39)
[2018-12-01] MEDS: CLINDAMYCIN 600 MG in DEXTROSE 5% IN WATER 50 ML IVPB SCH ×4 (17:39→22:04)
[2018-12-01] MEDS: MORPHINE SULFATE 4 MG/ML SYRINGE IV PRN ×2 (18:28→22:04)
[2018-12-01] MEDS ORDERED: CYCLOBENZAPRINE 10 MG TAB PO PRN (19:35)
[2018-12-01] MEDS ORDERED: DEXAMETHASONE SOD PHOSPHATE 10 MG/ML 1 ML VIAL IV STA (19:39)
[2018-12-01] MEDS: BENZOCAINE 20 % GEL 15 GM TUBE MM SCH (20:33)
[2018-12-01] MEDS: NORTRIPTYLINE 25 MG CAP PO SCH (20:34)
[2018-12-01] MEDS: PROBENECID 500 MG TAB PO SCH (20:34)
[2018-12-01] MEDS: MONTELUKAST 10 MG TAB PO SCH (20:45)
[2018-12-02] MEDS: BENZOCAINE 20 % GEL 15 GM TUBE MM SCH ×6 (01:41→23:39)
[2018-12-02] MEDS: MORPHINE SULFATE 4 MG/ML SYRINGE IV PRN ×5 (05:04→21:53)
[2018-12-02] MEDS: CHOLECALCIFEROL 1,000 UNIT TAB PO SCH (07:58)
[2018-12-02] MEDS: SODIUM CHLORIDE 0.9% 1,000 ML IV SCH (07:58)
[2018-12-02] MEDS: LORATADINE 10 MG TAB PO SCH (07:58)
[2018-12-02] MEDS: Elviteg/Cob/Emtri/Tenof Alafen [Genvoya Tablet] PO SCH (07:58)
[2018-12-02] MEDS: PROBENECID 500 MG TAB PO SCH ×2 (07:58→20:51)
[2018-12-02] MEDS: CLINDAMYCIN 600 MG in DEXTROSE 5% IN WATER 50 ML IVPB SCH ×6 (07:58→20:52)
--- NOTE | 2018-12-02 12:44 | P.HPIM ---
History of Present Illness H&P Date: 12/02/18 Chief Complaint: Dental abscess 43-year-old female with past medical history of HIV which is well controlled on oral medications, presenting to the emergency Department with complaints of worsening dental pain x 3 days. Patient was seen in the ER early this morning for same complaint and was started on oral clindamycin and follow up with the dental clinic. Patient did take one dose. Patient states returns today for worsening of her swelling and pain. Patient denies any trouble breathing or swallowing at this time. Patient denies drooling. Patient denies fever, chi lls. States she is unable to eat secondary to the swelling and pain. Patient does report taking Ultram at home for pain without significant improvement in symptoms. Patient reports that her viral load is undetectable and her CD4 count was normal. Patient denies any other complaints at this time. Workup in ED showed slight leukocytosis of 11.7, CRP of 23.2; soft tissue CT of neck was done which showed right sided mandibular soft tissue swelling consistent with cellulitis, right maxillary sinusitis Patient is being admitted for IV antibiotics and pain control and will be evaluated by maxillofacial surgery Review of Systems Constitutional: Reports chills, Denies fever Eyes: denies blurred vision Ears, nose, mouth and throat: Reports ant. neck pain, Reports dental pain, Denies epistaxis, Denies hoarseness Cardiovascular: Denies chest pain Respiratory: Denies cough with sputum Gastrointestinal: Denies abdominal pain, Denies nausea, Denies vomiting Genitourinary: Denies dysuria, Denies hematuria Musculoskeletal: Denies frequent falls, Denies gait dysfunction Integumentary: Denies change in hair/nails Neurological: Denies confusion, Denies convulsions, Denies double vision Psychiatric: Denies anxiety Endocrine: Denies cold intolerance, Denies heat intolerance Hematologic/Lymphatic: Denies easy bruising, Denies lymphadenopathy Allergic/Immunologic: Denies anaphylaxis, Denies wheezing Past Medical History Past Medical History: Asthma Additional Past Medical History / Comment(s): HIV positive, complication from gallbladder surg. in , ended up w/bile leak. History of Any Multi-Drug Resistant Organisms: None Reported Past Surgical History: Section, Cholecystectomy, Hernia Repair, Tubal Ligation, Uterine Ablation Past Anesthesia/Blood Transfusion Reactions: No Reported Reaction Past Psychological History: No Psychological Hx Reported Smoking Status: Current every day smoker Past Alcohol Use History: None Reported Past Drug Use History: None Reported - Past Family History Mother Family Medical History: No Reported History Medications and Allergies Home Medications Medication Instructions Recorded Confirmed Type Nortriptyline HCl [Pamelor] 100 mg PO HS 01/11/17 12/01/18 History traMADol HCL [Ultram] 50 mg PO QID 01/11/17 12/01/18 History Probenecid [Benemid] 500 mg PO BID 02/03/17 12/01/18 History Elviteg/Cob/Emtri/Tenof Alafen 1 tab PO DAILY 12/09/17 12/01/18 History [Genvoya Tablet] Cholecalciferol [Vitamin D3 (25 1,000 unit PO DAILY 12/01/18 12/01/18 History Mcg = 1000 Iu)] Clindamycin [Cleocin] 450 mg PO Q6H #120 capsule 12/01/18 12/01/18 Rx Loratadine [Claritin] 10 mg PO DAILY 12/01/18 12/01/18 History Meloxicam [Mobic] 15 mg PO DAILY 12/01/18 12/01/18 History Montelukast [Singulair] 10 mg PO HS 12/01/18 12/01/18 History Orphenadrine [Norflex] 100 mg PO BID PRN 12/01/18 12/01/18 History Allergies Allergy/AdvReac Type Severity Reaction Status Date / Time naproxen [From Naprosyn] Allergy Rash/Hives Verified 12/01/18 17:06 Penicillins Allergy Swelling Verified 12/01/18 17:06 sulfamethoxazole AdvReac Unknown Verified 12/01/18 17:06 [From Bactrim] trimethoprim [From Bactrim] AdvReac Unknown Verified 12/01/18 17:06 Physical Exam Vitals: Vital Signs Temp Pulse Pulse Resp BP BP Pulse Ox 12/02/18 06:11 96.7 F L 68 18 115/74 94 L 12/01/18 21:00 97.0 F L 74 18 133/83 99 12/01/18 18:24 96.9 F L 72 16 165/88 97 12/01/18 17:43 78 16 136/76 99 12/01/18 13:56 97.9 F 77 18 141/93 98 Intake and Output 10/07/1512/02/18 12/02/18 22:59 06:59 14:59 Intake Total 300 300 Balance 300 300 Intake: Intake, IV Titration 300 Amount Sodium Chloride 0.9% 1, 300 000 ml @ 60 mls/hr IV . [id number] [facility] Rx#:[id number] Oral 300 Other: Voiding Method Toilet # Voids 1 1 - Constitutional General appearance: Present: average body habitus, cooperative, no acute distress - EENT Eyes: Present: anicteric sclerae, EOMI, PERRLA, normal appearance ENT: Present: hearing grossly normal, normal oropharynx Ears: bilateral: normal - Neck Neck: Present: normal ROM. Absent: lymphadenopathy, rigidity, thyromegaly Carotids: negative: bruit present Thyroid: bilateral: normal size, negative: enlarged, nodule - Respiratory Respiratory: bilateral: CTA, negative: rales, rhonchi, wheezing - Cardiovascular Rhythm: regular Heart sounds: normal: S1, S2 Abnormal Heart Sounds: Absent: systolic murmur, diastolic murmur - Gastrointestinal General gastrointestinal: Present: normal bowel sounds, soft. Absent: distended, organomegaly, tenderness - Genitourinary Genitourinary Comment(s): deferred - Integumentary Integumentary: Present: normal turgor. Absent: jaundiced, rash, ulcer - Neurologic Neurologic: Present: CNII-XII intact. Absent: focal deficits - Musculoskeletal Musculoskeletal: Present: gait normal, strength equal bilaterally - Psychiatric Psychiatric: Present: A&O x's 3, appropriate affect, intact judgment & insight Results CBC & Chem 7: 12/01/18 14:43 12/01/18 14:43 Labs: Abnormal Lab Results - Last 24 Hours (Table) 12/01/18 12/01/18 Range/Units 14:43 14:43 WBC 11.7 H (3.8-10.6) k/uL Neutrophils # 8.9 H (1.3-7.7) k/uL C-Reactive Protein 23.2 H (<10.0) mg/L Thrombosis Risk Factor Assmnt - Choose All That Apply Each Factor Represents 1 point: Age 41-60 years Thrombosis Risk Factor Assessment Total Risk Factor Score: 1 Thrombosis Risk Factor Assessment Level: Low Risk Assessment and Plan Assessment: 1. Tooth abscess - Continue with clindamycin 600 mg IV every 6 hours - Tramadol 50 mg every 6 hours when necessary for pain control - Oral-facial surgery is to see patient for further recommendations 2. Cellulitis right neck - Patient remains stable on IV clindamycin; patient remains afebrile and white blood count is borderline high at 11.7 - Await blood culture results for further recommendations 3. Right maxillary sinusitis; IV clindamycin 4. Uncontrolled hypertension; we will monitor blood pressure closely; patient not on any antihypertensive therapy at home; we will continue to monitor and make recommendations prior to discharge 5. History of HIV; undetectable viral load with normal CD count per patient; patient will continue to follow-up as an outpatient 6. DVT prophylaxis; SCDs CODE STATUS; full code Time with Patient: Greater than 30
[2018-12-02] MEDS: traMADol 50 MG TAB PO PRN (19:44)
[2018-12-02] MEDS: NORTRIPTYLINE 25 MG CAP PO SCH (20:51)
[2018-12-02] MEDS: MONTELUKAST 10 MG TAB PO SCH (20:51)
--- NOTE | 2018-12-02 21:13 | CONS ---
CONSULTATION DATE OF CONSULT: 12/02/2018 CHIEF COMPLAINT: My face is swollen. HISTORY OF PRESENT ILLNESS: The patient is a 43-year-old female who states that she had a dull ache in the right mandibular posterior teeth and then she noticed the swelling which progressed quickly approximately 1 day ago. She then presented to the [facility] ER where she was evaluated and was admitted for IV antibiotics. The patient states that she feels better this morning and that the swelling has decreased. PAST MEDICAL HISTORY: Significant for HIV positive. Otherwise, she denies cardiac, pulmonary, GI, disease, blood dyscrasias, or endocrine problems. PHYSICAL EXAMINATION: Reveals the patient to be afebrile with stable vital signs. She is resting comfortably in bed. She is in no apparent distress. Head and neck examination reveals mild-to- moderate swelling of the right mandible. There is minimal submandibular swelling. The area is soft and mildly tender to palpation. There is no significant lymphadenopathy. There are no other injuries to the face. Intraoral examination reveals generalized carious teeth which are fractured. The right mandibular posterior teeth are decayed and tender to the touch. There is minimal vestibular swelling. There is no swelling in the floor of the mouth and there is no pharyngeal swelling. ASSESSMENT: 1. Dental caries. 2. Odontogenic infection to the right buccal space and submandibular regions. PLAN: The patient is improving on IV antibiotics. There is no definitive abscess that requires acute draining. Patient can continue on the IV clindamycin and apply heat to the face. Head of bed elevated and I will follow her tomorrow. I anticipate discharge tomorrow and the teeth will be extracted in my office with IV sedation. MMODL / IJN: [id number] /
[2018-12-03] MEDS: SODIUM CHLORIDE 0.9% 1,000 ML IV SCH (04:32)
[2018-12-03 05:22] VITALS: BP 117/75; RESP 18; TEMP 97.9
[2018-12-03] MEDS: MORPHINE SULFATE 4 MG/ML SYRINGE IV PRN ×2 (05:45→09:32)
[2018-12-03] MEDS: BENZOCAINE 20 % GEL 15 GM TUBE MM SCH ×2 (05:48→09:38)
[2018-12-03] MEDS: LORATADINE 10 MG TAB PO SCH (07:33)
[2018-12-03] MEDS: PROBENECID 500 MG TAB PO SCH (07:33)
[2018-12-03] MEDS: CHOLECALCIFEROL 1,000 UNIT TAB PO SCH (07:33)
[2018-12-03] MEDS: Elviteg/Cob/Emtri/Tenof Alafen [Genvoya Tablet] PO SCH (07:34)
[2018-12-03] MEDS: CLINDAMYCIN 600 MG in DEXTROSE 5% IN WATER 50 ML IVPB SCH ×2 (07:37)
[2018-12-03] MEDS: traMADol 50 MG TAB PO PRN (07:40)
[2018-12-03 07:44] VITALS: PULSE 68
--- NOTE | 2018-12-03 08:03 | P.PN ---
Subjective 43-year-old female with past medical history of HIV which is well controlled on oral medications, presenting to the emergency Department with complaints of worsening right-sided jaw pain and swelling. Mostly related to her dental infection. This patient also has bad teeth. Patient denies any trouble breathing or swallowing at this time. Patient denies drooling. Patient denies fever, chills. States she is unable to eat secondary to the swelling and pain. soft tissue CT of neck was done which showed right sided mandibular soft tissue swelling consistent with cellulitis, right maxillary sinusitis. Patient is being admitted for IV antibiotics and pain control and will be evaluated by maxillofacial surgery Patient says that her swelling and tenderness on the right Tay area is improving gradually with antibiotics. Patient will be evaluated by maxillofacial surgery team which are consulted. Objective - Vital Signs Vital signs: Vital Signs Temp 97.9 F 12/03/18 05:21 Pulse 68 12/03/18 07:42 Resp 18 12/03/18 07:42 BP 117/75 12/03/18 05:21 Pulse Ox 94 L 12/03/18 05:21 Intake & Output 12/02/18 12/03/18 12/03/18 18:59 06:59 18:59 Intake Total 700 Balance 700 Intake: Oral 700 Other: Voiding Method Toilet Toilet Toilet # Voids 1 2 2 - Exam GENERAL: The patient is alert and oriented x3, not in any acute distress. Well developed, well nourished. -HEENT: Pupils are round and equally reacting to light. EOMI. No scleral icterus. No conjunctival pallor. Normocephalic, atraumatic. No pharyngeal erythema. No thyromegaly. Swelling and tenderness around the right mandibular angle. Mouth examination was tongue depressor showing no purulent discharge or redness and swelling. Patient has both tooth hygiene CARDIOVASCULAR: S1 and S2 present. No murmurs, rubs, or gallops. PULMONARY: Chest is clear to auscultation, no wheezing or crackles. ABDOMEN: Soft, nontender, nondistended, normoactive bowel sounds. No palpable organomegaly. MUSCULOSKELETAL: No joint swelling or deformity. EXTREMITIES: No cyanosis, clubbing, or pedal edema. NEUROLOGICAL: Gross neurological examination did not reveal any focal deficits. SKIN: No rashes. no petechiae. - Labs CBC & Chem 7: 12/01/18 14:43 12/01/18 14:43 Labs: Microbiology - Last 24 Hours (Table) 12/01/18 14:43 Blood Culture - Preliminary Blood No Growth after 24 hours Assessment and Plan Assessment: Right mandibular and submandibular cellulitis Bad dental caries hypertension History of HIV Plan: This is a pleasant 43 years old male who presents with right mandibular cellulitis. Continue with antibiotics, currently on clindamycin and follow-up the recommendation of maxilla facial surgery team. Labs and medication were reviewed.. Continue same treatment. Continue with symptomatic treatment. Resume home medication. Monitor lytes and vitals. DVT and GI prophylaxis. Further recommendations of the clinical course of the patient DVT prophylaxis: Subcutaneous heparin GI Prophylaxis: Pepcid
[2018-12-03 08:12] LABS: African American GFR (CKD) >90 (>60 ml/min/1.73 sqM); Anion Gap 7 mmol/L; Basophils % (A) 0 %; Blood Urea Nitrogen 15 mg/dL (7-17); Calcium 9.2 mg/dL (8.4-10.2); Carbon Dioxide 25 mmol/L (22-30); Chloride 107 mmol/L (98-107); Eosinophils % (A) 0 %; Glucose 104 mg/dL (74-99); HCT 37.9 % (34.0-46.0); HGB 12.6 gm/dL (11.4-16.0); Lymphocytes # (A) 1.3 k/uL (1.0-4.8); Lymphocytes % (A) 10 %; MCH 30.7 pg (25.0-35.0); MCHC 33.3 g/dL (31.0-37.0); MCV 92.2 fL (80.0-100.0); Mean Platelet Volume 5.5; Monocytes # (A) 0.5 k/uL (0-1.0); Monocytes % (A) 4 %; Neutrophils # (A) 11.6 k/uL (1.3-7.7); Neutrophils % (A) 86 %; Platelet Count 273 k/uL (150-450); Potassium 4.1 mmol/L (3.5-5.1); RBC 4.11 m/uL (3.80-5.40); RDW 14.1 % (11.5-15.5); Sodium 139 mmol/L (137-145); WBC 13.6 k/uL (3.8-10.6)
[2018-12-03] MEDS ORDERED: FAMOTIDINE 20 MG/2 ML VIAL IV SCH (09:00)
[2018-12-03] MEDS ORDERED: HEPARIN SODIUM,PORCINE 5,000 UNIT/ML 1 ML VIAL SQ SCH (09:00)
--- NOTE | 2018-12-03 12:12 | P.DS ---
Providers Date of admission: 12/01/18 16:46 Attending physician: Bella Avila Consults: 12/01/18 19:30 Consult Physician Urgent Consulting Provider: Cuong Matta Consult Reason/Comments: dental abscess Do you want consulting provider notified?: Yes Primary care physician: Jeanne Grant [facility] Course: Diagnoses: Right mandibular and submandibular cellulitis Bad dental caries hypertension History of HIV Hospital course: 43-year-old female with past medical history of HIV which is well controlled on oral medications, presenting to the emergency Department with complaints of worsening right-sided jaw pain and swelling. Mostly related to her dental infection. This patient also has bad teeth. Patient denies any trouble breathing or swallowing at this time. Patient denies drooling. Patient denies fever, chills. soft tissue CT of neck was done which showed right sided mandibular soft tissue swelling consistent with cellulitis, right maxillary sinusitis. Patient is being admitted for IV antibiotics and pain control and she was evaluated by maxillofacial surgery recommended to continue with IV clindamycin and discharge today so he can see her in his office at 1:30 p.m. this afternoon just extract her to have contributed to her antibiotics. Patient says that her swelling and tenderness on the right Jaw area is improving gradually with antibiotics. He bad is applied to the area locally, patient agrees to be discharged and follow-up with her maxillo-fascial surgeon today at his office records extraction. She'll get pain medication at the surgical office, however patient will be discharged on a course of clindamycin 600 mg 3 times a day for 10 days Problems and management plan were discussed with the patient and he verbalized understanding and acceptance Patient was found stable and can be discharged home however he needs follow-up as an outpatient. Patient was instructed to follow up with PCP within one week and patient agrees Gen: patient is a AAOx3, no distress. Head and neck: No lymphadenopathy. Pupils are equal and reactive to light Right jaw area is swollen and tender with redness, improvement. Most examination: Bad teeth and dental caries in the right lower teeth CVS: S1-S2, RRR, no murmur Lungs: B/L CTA, no wheezing Abdomen: soft, no distention, no tenderness, positive bowel sounds Extremity: no leg edema or induration Time spent more than 35 minutes Patient Condition at Discharge: Good Plan - Discharge Summary New Discharge Prescriptions: New Clindamycin HCl [Cleocin] 600 mg PO Q8H 10 Days #60 cap Continue traMADol HCL [Ultram] 50 mg PO QID Nortriptyline HCl [Pamelor] 100 mg PO HS Probenecid [Benemid] 500 mg PO BID Elviteg/Cob/Emtri/Tenof Alafen [Genvoya Tablet] 1 tab PO DAILY Montelukast [Singulair] 10 mg PO HS Orphenadrine [Norflex] 100 mg PO BID PRN PRN Reason: Muscle Spasm Loratadine [Claritin] 10 mg PO DAILY Cholecalciferol [Vitamin D3 (25 Mcg = 1000 Iu)] 1,000 unit PO DAILY Meloxicam [Mobic] 15 mg PO DAILY Discontinued Clindamycin [Cleocin] 450 mg PO Q6H #120 capsule Discharge Medication List Nortriptyline HCl [Pamelor] 100 mg PO HS 01/11/17 [History] traMADol HCL [Ultram] 50 mg PO QID 01/11/17 [History] Probenecid [Benemid] 500 mg PO BID 02/03/17 [History] Elviteg/Cob/Emtri/Tenof Alafen [Genvoya Tablet] 1 tab PO DAILY 12/09/17 [History] Cholecalciferol [Vitamin D3 (25 Mcg = 1000 Iu)] 1,000 unit PO DAILY 12/01/18 [History] Loratadine [Claritin] 10 mg PO DAILY 12/01/18 [History] Meloxicam [Mobic] 15 mg PO DAILY 12/01/18 [History] Montelukast [Singulair] 10 mg PO HS 12/01/18 [History] Orphenadrine [Norflex] 100 mg PO BID PRN 12/01/18 [History] Clindamycin HCl [Cleocin] 600 mg PO Q8H 10 Days #60 cap 12/03/18 [Rx] Follow up Appointment(s)/Referral(s): Juanita Angel MD [Primary Care Provider] - 1-2 days uCong Matta DDS [STAFF PHYSICIAN] - 12/03/18 1:30 pm Patient Instructions/Handouts: Dental Abscess (GEN) Activity/Diet/Wound Care/Special Instructions: PT BEING DCD WITH IV. NOTHING BY MOUTH FOR TOOTH EXTRACTION WITH DR. MATTA AT 1330. PAIN MEDS PER ORAL SURGERY.
== END 2018-12-03 13:15 | disposition home or self-care (01) ==
LOC: EC 13:55 → UNDOADMIN 16:46 → 4MS4W 16:46 → INTOOBSV 16:49 → UNDODISIN 12-03 13:15
PROVIDERS: ADMIT Hospitalist; ATTEND Hospitalist
DX: K12.2 Cellulitis and abscess of mouth (principal); L03.211 Cellulitis of face; I10 Essential (primary) hypertension; J32.0 Chronic maxillary sinusitis; J45.909 Unspecified asthma, uncomplicated; K02.9 Dental caries, unspecified; Z21 Asymptomatic human immunodeficiency virus [HIV] infection status; F17.200 Nicotine dependence, unspecified, uncomplicated; Z79.891 Long term (current) use of opiate analgesic; Z79.1 Long term (current) use of non-steroidal anti-inflammatories (NSAID); Z79.899 Other long term (current) drug therapy; Z88.6 Allergy status to analgesic agent; Z88.1 Allergy status to other antibiotic agents; Z88.0 Allergy status to penicillin; Z88.2 Allergy status to sulfonamides; Z90.49 Acquired absence of other specified parts of digestive tract; Z98.51 Tubal ligation status
CPT/HCPCS: 96376 ×4; 96366 ×3; 96375 ×2; 96365; 99284; 36415; 80053; 80048; 85652; 83605; 85025 ×2; 86140; 84703; 87040; 70491; G0378 ×3; J2270 ×4; J1100; J2405; Q9967

== ENCOUNTER → 2018-12-28 | Outpatient (CLI) | payer OTHER ==
[2018-12-28 09:33] LABS: HCT 37.9 % (34.0-46.0); HGB 12.8 gm/dL (11.4-16.0); MCH 30.2 pg (25.0-35.0); MCHC 33.9 g/dL (31.0-37.0); MCV 89.1 fL (80.0-100.0); Mean Platelet Volume 6.1; Platelet Count 294 k/uL (150-450); RBC 4.25 m/uL (3.80-5.40); RDW 13.2 % (11.5-15.5); WBC 11.9 k/uL (3.8-10.6)
[2018-12-28 11:22] LABS: Erythrocyte Sedimentation Rate 24 mm/hr (0-20)
[2018-12-28 13:39] LABS: Reticulocyte % 1.7 % (0.5-2.0)
[2018-12-28 17:46] LABS: % Iron Saturation 13.73 (12.00-45.00); C Reactive Protein 3.5 mg/dL (0.0-0.8); Uric Acid 4.2 mg/dL (2.9-7.7)
[2018-12-28 17:52] LABS: Ferritin 42.4 ng/mL (10.0-291.0)
[2018-12-28 17:53] LABS: Folate, Serum 6.4 ng/mL
== END ==
LOC: LABWHC1 09:12
PROVIDERS: ATTEND Psychiatry & Neurology Pain Medicine
DX: D64.9 Anemia, unspecified (principal)
CPT/HCPCS: 36415; 82607; 82668; 82728; 82746; 83540; 83550; 84466; 84550; 85027; 85045; 85652; 86140

== ENCOUNTER 2019-02-20 21:59 | Emergency (ER) | payer OTHER ==
[2019-02-20 22:05] VITALS: BP 159/97; PULSE 102; RESP 20; TEMP 99
[2019-02-20] MEDS ORDERED: APIXABAN 5 MG TAB PO STA (22:12)
--- NOTE | 2019-02-20 22:16 | ED ---
ENT HPI - General Chief complaint: Dental/Oral Stated complaint: Facial swelling Source: patient, family Mode of arrival: ambulatory Limitations: no limitations - History of Present Illness Initial comments: Romana is a 43-year-old female with a history of multiple dental caries, patient follows with oral surgeon Dr. Hargrove and has had multiple extractions in the past. Patient reports that earlier this week she ate some oranges which she believes irritated her teeth. She reports that since that time she's noticed some worsening redness and tenderness in the teeth and over the past day has developed some swelling of her upper lip and cheek. Patient reports that she had an old prescription for Keflex at home so she tried taking now but has had no improvement which prompted her to come the ER for evaluation. Patient reports a low-grade fever no chills no trouble speaking or swallowing no sore throat. She reports a history of ALLERGY to penicillins. - Related Data Home Medications Medication Instructions Recorded Confirmed Nortriptyline HCl [Pamelor] 100 mg PO HS 01/11/17 12/01/18 traMADol HCL [Ultram] 50 mg PO QID 01/11/17 12/01/18 Probenecid [Benemid] 500 mg PO BID 02/03/17 12/01/18 Elviteg/Cob/Emtri/Tenof Alafen 1 tab PO DAILY 12/09/17 12/01/18 [Genvoya Tablet] Cholecalciferol [Vitamin D3 (25 1,000 unit PO DAILY 12/01/18 12/01/18 Mcg = 1000 Iu)] Loratadine [Claritin] 10 mg PO DAILY 12/01/18 12/01/18 Meloxicam [Mobic] 15 mg PO DAILY 12/01/18 12/01/18 Montelukast [Singulair] 10 mg PO HS 12/01/18 12/01/18 Orphenadrine [Norflex] 100 mg PO BID PRN 12/01/18 12/01/18 Previous Rx's Medication Instructions Recorded Clindamycin HCl [Cleocin] 600 mg PO Q8H 10 Days #60 cap 12/03/18 Clindamycin [Cleocin] 450 mg PO Q8H #21 capsule 02/20/19 Allergies Allergy/AdvReac Type Severity Reaction Status Date / Time naproxen [From Naprosyn] Allergy Rash/Hives Verified 02/20/19 22:05 Penicillins Allergy Swelling Verified 02/20/19 22:05 sulfamethoxazole AdvReac Unknown Verified 02/20/19 22:05 [From Bactrim] trimethoprim [From Bactrim] AdvReac Unknown Verified 02/20/19 22:05 Review of Systems ROS Statement: Those systems with pertinent positive or pertinent negative responses have been documented in the HPI. ROS Other: All systems not noted in ROS Statement are negative. Past Medical History Past Medical History: Asthma Additional Past Medical History / Comment(s): HIV positive, complication from gallbladder surg. in Oct., ended up w/bile leak. History of Any Multi-Drug Resistant Organisms: None Reported Past Surgical History: Section, Cholecystectomy, Hernia Repair, Tubal Ligation, Uterine Ablation Past Anesthesia/Blood Transfusion Reactions: No Reported Reaction Past Psychological History: No Psychological Hx Reported Smoking Status: Current every day smoker Past Alcohol Use History: None Reported Past Drug Use History: None Reported - Past Family History Mother Family Medical History: No Reported History General Exam - General Exam Comments Initial Comments: Physical Exam GENERAL: Patient is well-developed and well-nourished. Patient is nontoxic and well-hydrated and is in no distress. HENT: Poor dentition, multiple dental caries and broken teeth No obvious abscess Swelling of the upper lip and left cheek No swelling of tongue, uvula, no swelling of neck, no elevation of tongue, no difficulty in speech or swallowing EYES: PERRL, EOMI PULMONARY: Unlabored respirations. CARDIOVASCULAR: RRR Warm and well perfused extremities ABDOMEN: Non-distended SKIN: No rashes or bruising : Deferred NEUROLOGIC: Alert and oriented Normal speech Normal gait MUSCULOSKELETAL: Moving all extremities with no apparent injury PSYCHIATRIC: No SI/HI Limitations: no limitations Course Vital Signs 02/20/19 22:01 Temperature 99 F Pulse Rate 102 H Respiratory 20 Rate Blood Pressure 159/97 O2 Sat by Pulse 98 Oximetry Medical Decision Making - Medical Decision Making The patient was seen and evaluated, history obtained from patient hx and physical exam concerning for dental infection without obvious abscess Patient will be placed on Clinda, first dose given in the ER Return parameters and follow up discussed with patient who expresses understanding and agreement with plan. Patient discharged home in stable condition Disposition Clinical Impression: Dental abscess, Fracture of tooth, Dental caries Disposition: HOME SELF-CARE Condition: Stable Instructions (If sedation given, give patient instructions): Dental Abscess (ED) Prescriptions: Clindamycin [Cleocin] 450 mg PO Q8H #21 capsule Is patient prescribed a controlled substance at d/c from ED?: No Referrals: Juanita Angel MD [Primary Care Provider] - 1-2 days
[2019-02-20] MEDS ORDERED: CLINDAMYCIN 150 MG CAP PO STA (22:22)
== END 2019-02-20 22:49 | disposition home or self-care (01) ==
LOC: EC 21:59
DX: K04.7 Periapical abscess without sinus (principal); K02.9 Dental caries, unspecified; S02.5XXA Fracture of tooth (traumatic), initial encounter for closed fracture; J45.909 Unspecified asthma, uncomplicated; B20 Human immunodeficiency virus [HIV] disease; F17.200 Nicotine dependence, unspecified, uncomplicated; Z88.0 Allergy status to penicillin; Z88.2 Allergy status to sulfonamides; Z88.6 Allergy status to analgesic agent; Z79.1 Long term (current) use of non-steroidal anti-inflammatories (NSAID); Z79.891 Long term (current) use of opiate analgesic; Z79.899 Other long term (current) drug therapy; X58.XXXA Exposure to other specified factors, initial encounter
CPT/HCPCS: 99283

== ENCOUNTER → 2019-04-10 | Outpatient (CLI) | payer OTHER ==
[2019-04-10 09:11] LABS: Basophils # (A) 0.1 k/uL (0-0.2); Basophils % (A) 1 %; Eosinophils # (A) 0.5 k/uL (0-0.7); Eosinophils % (A) 6 %; HCT 42.3 % (34.0-46.0); HGB 14.6 gm/dL (11.4-16.0); Lymphocytes # (A) 1.9 k/uL (1.0-4.8); Lymphocytes % (A) 22 %; MCH 30.6 pg (25.0-35.0); MCHC 34.5 g/dL (31.0-37.0); MCV 88.7 fL (80.0-100.0); Mean Platelet Volume 7.1; Monocytes # (A) 0.4 k/uL (0-1.0); Monocytes % (A) 4 %; Neutrophils # (A) 5.6 k/uL (1.3-7.7); Neutrophils % (A) 64 %; Platelet Count 296 k/uL (150-450); RBC 4.78 m/uL (3.80-5.40); RDW 13.1 % (11.5-15.5); WBC 8.7 k/uL (3.8-10.6)
[2019-04-10 17:24] LABS: African American GFR (CKD) 104.7 (60.0-200.0); Anion Gap 8.9 mmol/L (4.00-12.00); BUN/Creat Ratio 13.75 Ratio (12.00-20.00); Carbon Dioxide 23.1 mmol/L (21.6-31.8); Non-African American GFR(CKD) 90.3 (60.0-200.0)
[2019-04-11 10:52] LABS: T4/T8 Ratio (CD4:CD8) 1.8 (1.0-3.7)
[2019-04-11 12:54] LABS: HIV-1 RNA Not detected (Not detected); HIV-1 RNA, Quant <40 Copies/mL (<40)
== END | disposition home or self-care (01) ==
LOC: LABWHC1 08:28
PROVIDERS: ATTEND Internal Medicine Infectious Disease
DX: B20 Human immunodeficiency virus [HIV] disease (principal); Z88.0 Allergy status to penicillin
CPT/HCPCS: 36415; 80048; 85025; 86360; 87536

== ENCOUNTER → 2020-03-16 | Outpatient (CLI) | payer OTHER ==
--- NOTE | 2020-03-16 12:11 | FL ---
EXAMINATION TYPE: FL barium swallow w video DATE OF EXAM: 03/16/2020 MODIFIED SWALLOW / DEGLUTITION STUDY CLINICAL HISTORY: Dysphagia. TECHNIQUE: Deglutition study is performed utilizing thin liquid barium, honey and nectar thick liqui d barium, barium thick pudding, and barium coated cracker. Total of 75 seconds of fluoroscopic time u tilized during procedure. 0 spot images saved to PACS. COMPARISON: None. FINDINGS: The oral and pharyngeal phases show satisfactory initiation and propagation with all modali ties tested. Normal mastication is seen with solid modalities tested. There is no evidence of penet ration or aspiration with any modality tested. No significant pharyngeal residue was appreciated. IMPRESSION: Normal deglutition study. Please refer to speech therapist notes for further details if necessary.
== END | disposition home or self-care (01) ==
LOC: RADFLMAIN 11:17
PROVIDERS: ATTEND Internal Medicine
DX: R13.10 Dysphagia, unspecified (principal); Z88.0 Allergy status to penicillin; Z88.2 Allergy status to sulfonamides; Z88.1 Allergy status to other antibiotic agents
CPT/HCPCS: 74230

== ENCOUNTER 2020-03-25 10:48 | Emergency (ER) | payer OTHER ==
[2020-03-25 10:55] VITALS: BP 167/83; PULSE 78; RESP 18; TEMP 98.5
--- NOTE | 2020-03-25 11:01 | ED ---
ENT HPI - General Chief complaint: ENT Stated complaint: sore throat Time Seen by Provider: 03/25/20 10:55 Source: patient, RN notes reviewed Mode of arrival: ambulatory Limitations: no limitations - History of Present Illness Initial comments: 44-year-old presented emergency Department with chief complaint of her throat. This has been on and off for last month but has worsened recently. Patient had slowed screen which was normal patient states that 4 weeks ago she was placed on antibiotics and seemed to slightly improved symptoms patient has not follow-up with ENT she's had neck fusion chills denies any chest pain shortness breath abdominal pain. - Related Data Home Medications Medication Instructions Recorded Confirmed Nortriptyline HCl [Pamelor] 100 mg PO HS 01/11/17 12/01/18 traMADol HCL [Ultram] 50 mg PO QID 01/11/17 12/01/18 Probenecid [Benemid] 500 mg PO BID 02/03/17 12/01/18 Elviteg/Cob/Emtri/Tenof Alafen 1 tab PO DAILY 12/09/17 12/01/18 [Genvoya Tablet] Cholecalciferol [Vitamin D3 (25 1,000 unit PO DAILY 12/01/18 12/01/18 Mcg = 1000 Iu)] Loratadine [Claritin] 10 mg PO DAILY 12/01/18 12/01/18 Meloxicam [Mobic] 15 mg PO DAILY 12/01/18 12/01/18 Montelukast [Singulair] 10 mg PO HS 12/01/18 12/01/18 Orphenadrine [Norflex] 100 mg PO BID PRN 12/01/18 12/01/18 Previous Rx's Medication Instructions Recorded clindamycin HCL [Cleocin] 600 mg PO Q8H 10 Days #60 cap 12/03/18 Clindamycin [Cleocin] 450 mg PO Q8H #21 capsule 02/20/19 Azithromycin [Zithromax] 500 mg PO DAILY #5 tab 03/25/20 predniSONE 50 mg PO DAILY #5 tab 03/25/20 Allergies Allergy/AdvReac Type Severity Reaction Status Date / Time naproxen [From Naprosyn] Allergy Rash/Hives Verified 03/25/20 10:55 Penicillins Allergy Swelling Verified 03/25/20 10:55 sulfamethoxazole AdvReac Unknown Verified 03/25/20 10:55 [From Bactrim] trimethoprim [From Bactrim] AdvReac Unknown Verified 03/25/20 10:55 Review of Systems ROS Statement: Those systems with pertinent positive or pertinent negative responses have been documented in the HPI. ROS Other: All systems not noted in ROS Statement are negative. Past Medical History Past Medical History: Asthma Additional Past Medical History / Comment(s): HIV positive, complication from gallbladder surg. in Oct., ended up w/bile leak. History of Any Multi-Drug Resistant Organisms: None Reported Past Surgical History: Section, Cholecystectomy, Hernia Repair, Tubal Ligation, Uterine Ablation Past Anesthesia/Blood Transfusion Reactions: No Reported Reaction Past Psychological History: Depression Smoking Status: Current every day smoker Past Alcohol Use History: None Reported Past Drug Use History: None Reported - Past Family History Mother Family Medical History: No Reported History General Exam Limitations: no limitations General appearance: alert, in no apparent distress Head exam: Present: atraumatic, normocephalic, normal inspection Eye exam: Present: normal appearance, PERRL, EOMI. Absent: scleral icterus, conjunctival injection, periorbital swelling ENT exam: Present: mucous membranes moist, TM's normal bilaterally. Absent: normal exam, normal oropharynx (Erythema posterior pharynx) Neck exam: Present: normal inspection, full ROM. Absent: tenderness, meningismus, lymphadenopathy Respiratory exam: Present: normal lung sounds bilaterally. Absent: respiratory distress, wheezes, rales, rhonchi, stridor Cardiovascular Exam: Present: regular rate, normal rhythm, normal heart sounds. Absent: systolic murmur, diastolic murmur, rubs, gallop, clicks GI/Abdominal exam: Present: soft, normal bowel sounds. Absent: distended, tenderness, guarding, rebound, rigid Course Vital Signs 03/25/20 10:50 Temperature 98.5 F Pulse Rate 78 Respiratory 18 Rate Blood Pressure 167/83 O2 Sat by Pulse 98 Oximetry Medical Decision Making - Medical Decision Making Patient was placed any rectal discharge patient follow-up with PCP and ENT return parameters were discussed. Disposition Clinical Impression: Pharyngitis Disposition: HOME SELF-CARE Condition: Stable Instructions (If sedation given, give patient instructions): Pharyngitis (ED) Additional Instructions: Please return to the Emergency Department if symptoms worsen or any other concerns. Prescriptions: predniSONE 50 mg PO DAILY #5 tab Azithromycin [Zithromax] 500 mg PO DAILY #5 tab Is patient prescribed a controlled substance at d/c from ED?: No Referrals: Jordon Valente MD [STAFF PHYSICIAN] - 1-2 days Time of Disposition: 11:01
== END 2020-03-25 11:10 | disposition home or self-care (01) ==
LOC: EC 10:48
DX: J02.9 Acute pharyngitis, unspecified (principal); F32.9 Major depressive disorder, single episode, unspecified; F17.200 Nicotine dependence, unspecified, uncomplicated; Z79.899 Other long term (current) drug therapy; Z79.1 Long term (current) use of non-steroidal anti-inflammatories (NSAID); Z88.6 Allergy status to analgesic agent; Z88.2 Allergy status to sulfonamides; Z88.1 Allergy status to other antibiotic agents; Z88.0 Allergy status to penicillin; Z21 Asymptomatic human immunodeficiency virus [HIV] infection status
CPT/HCPCS: 99283

== ENCOUNTER → 2020-04-02 | Outpatient (CLI) | payer OTHER | END | disposition home or self-care (01) | LOC: LABWHC1 09:02 | PROVIDERS: ATTEND Psychiatry & Neurology Pain Medicine | DX: U07.1 COVID-19 (principal) | CPT/HCPCS: 86769; 36415; U0003; C9803 ==

== ENCOUNTER 2020-05-29 08:45 | Day surgery (SDC) | payer OTHER ==
[2020-05-12 09:15] VITALS: BMI 36.8
[~2020-05-29 08:45] MED LIST: LACTATED RINGERS 1,000 ML IV SCH; LIDOCAINE 1% (10MG/ML) FOR IV START INTRADERMA PRN
[2020-05-29 09:35] VITALS: RESP 16; TEMP 98
[2020-05-29 09:50] LABS: Glucose,Whole Blood 106 mg/dL (75-99)
[2020-05-29] MEDS ORDERED: PROPOFOL 10 MG/ML 20 ML VIAL IV ONE (09:58)
--- NOTE | 2020-05-29 10:12 | P.PCN ---
Date of Procedure: 05/29/20 Procedure(s) Performed: BRIEF HISTORY: Patient is a 44-year-old, pleasant, white female scheduled for an upper endoscopy as a part of evaluation of intermittent dysphagia to solids for the last 2 months duration. She has a sensation of pain in her throat area and was recently treated with antibiotics and the symptoms are gradually improving.. PROCEDURE PERFORMED: Esophagogastroduodenoscopy with biopsy. PREOPERATIVE DIAGNOSIS: Throat pain and intermittent dysphagia to solids. IV sedation per anesthesia. PROCEDURE: After informed consent was obtained, the patient was brought into the endoscopy unit. IV sedation was administered by Anesthesia under continuous monitoring. Initially the Olympus GIF-140 video endoscope was inserted into the mouth. Esophagus intubated without any difficulty. It was gradually advanced into the stomach and duodenum and carefully examined. The bulb and the second part of the duodenum appeared normal. The scope at this time was withdrawn to the stomach, adequately insufflated with air, and upon careful examination, mucosa of the antrum, had antral erosive gastritis and biopsies were done from this area. The body, cardia and the fundus appeared normal. The scope was then withdrawn into the esophagus. The GE junction was located at 39 cm from the incisors. Small sliding-type well hernia noted. The esophagus appeared normal. There were no erosions or ulcerations seen, no evidence of esophageal stricture. Biopsies were done from the distal esophagus and the patient tolerated the procedure well. IMPRESSION: 1. Antral erosive gastritis. 2. Small hiatal hernia but no evidence of esophagitis or esophageal stricture. RECOMMENDATIONS: The findings of this examination were discussed with the patient as well as a family. She was advised to follow with the biopsy results and follow with Dr. Tierney scheduled.
[2020-05-29 10:32] VITALS: BP 134/87; PULSE 83
== END 2020-05-29 10:55 | disposition home or self-care (01) ==
LOC: ORWHC2ENDO 08:45
PROVIDERS: ATTEND Internal Medicine Gastroenterology
DX: K29.50 Unspecified chronic gastritis without bleeding (principal); K20.90 Esophagitis, unspecified without bleeding; K44.9 Diaphragmatic hernia without obstruction or gangrene; R13.10 Dysphagia, unspecified; J45.909 Unspecified asthma, uncomplicated; M19.90 Unspecified osteoarthritis, unspecified site; F17.210 Nicotine dependence, cigarettes, uncomplicated; Z21 Asymptomatic human immunodeficiency virus [HIV] infection status; Z79.899 Other long term (current) drug therapy; Z88.6 Allergy status to analgesic agent; Z88.0 Allergy status to penicillin; Z88.2 Allergy status to sulfonamides
CPT/HCPCS: 81025; 88305; 88342; 43239; J2704

== ENCOUNTER → 2020-07-15 | Outpatient (CLI) | payer OTHER ==
[2020-07-15 14:19] LABS: Basophils # (A) 0.09 X 10*3/uL (0.00-0.10); Basophils % (A) 1.1 %; Eosinophils % (A) 7.3 %; HCT 37.1 % (37.2-46.3); HGB 12.5 g/dL (12.0-15.0); Lymphocytes # (A) 1.92 X 10*3/uL (0.90-5.00); Lymphocytes % (A) 23.2 %; MCH 31.9 pg (27.0-32.0); MCHC 33.7 g/dL (32.0-37.0); MCV 94.6 fL (80.0-97.0); Mean Platelet Volume 8.8 fL (9.5-12.2); Monocytes # (A) 0.58 X 10*3/uL (0.20-1.00); Neutrophils # (A) 5.05 X 10*3/uL (1.80-7.70); Platelet Count 228 X 10*3/uL (140-440); RBC 3.92 X 10*6/uL (4.10-5.20); RDW 13.3 % (11.5-14.5); WBC 8.27 X 10*3/uL (4.50-10.00)
[2020-07-15 16:47] LABS: African American GFR (CKD) 122.1 (60.0-200.0); Anion Gap 3.2 mmol/L (4.00-12.00); BUN/Creat Ratio 21.43 Ratio (12.00-20.00); Calcium 8.6 mg/dL (8.7-10.3); Carbon Dioxide 27.8 mmol/L (21.6-31.8); Non-African American GFR(CKD) 105.4 (60.0-200.0); Potassium 4.4 mmol/L (3.5-5.5); Total Bilirubin 0.3 mg/dL (0.2-1.2)
[2020-07-15 16:57] LABS: Folate, Serum 8.7 ng/mL
[2020-07-15 17:27] LABS: T4, Free (Free Thyroxine) 0.7 ng/dL (0.80-1.80)
[2020-07-15 18:13] LABS: Hepatitis B Core IgM Non-Reactive (Non-Reactive); Hepatitis B Surface AB- Quant 119.3 mIU/mL; Hepatitis B Surface Antibody Reactive (Non-Reactive); Hepatitis B Surface Antigen Non-Reactive (Non-Reactive)
[2020-07-15 20:41] LABS: HIV 2 AB Non-Reactive (Non-Reactive); HIV AB P24 REACTIVE (Non-Reactive); HIV P24 AG Non-Reactive (Non-Reactive)
[2020-07-17 06:55] LABS: Vit B1(Thiamine) 74 ug/L (38-122)
[2020-07-17 12:23] LABS: IgG - CSF 2.1 mg/dL (0.0 - 3.4); Immunoglobulin G 766 mg/dL (700 - 1600)
[2020-07-20 07:15] LABS: HIV1D REACTIVE; HIV2D NONREAC
[2020-07-21 23:03] LABS: Nicotinamide 17 ng/mL; Nicotinic Acid None Detected; Nicotinuric Acid None Detected
== END | disposition home or self-care (01) ==
LOC: LABWHC1 08:29
PROVIDERS: ATTEND Psychiatry & Neurology Pain Medicine
DX: G35 Multiple sclerosis (principal); R90.82 White matter disease, unspecified
CPT/HCPCS: 36415; 80053; 82040; 82042; 82306; 82607; 82746; 82784; 83036; 83916; 84157; 84425; 84439; 84443; 84481; 84591; 85025; 86704; 86705; 86706; 86787; 87340; 87389; 87390; 87801; 88108; 89050

== ENCOUNTER 2020-08-06 06:07 | Emergency (ER) | payer OTHER ==
[2020-08-06] MEDS ORDERED: ONDANSETRON 4 MG/2 ML VIAL IVP STA (06:31)
[2020-08-06] MEDS ORDERED: SODIUM CHLORIDE 0.9% 1,000 ML IV STA (06:31)
[2020-08-06] MEDS ORDERED: HYDROmorphone 0.5 MG/0.5 ML SYRINGE IVP STA ×2 (06:31→08:59)
--- NOTE | 2020-08-06 06:59 | ED ---
Back Pain HPI - General Chief Complaint: Back Pain/Injury Stated Complaint: Back Pain Time Seen by Provider: 08/06/20 06:16 Source: patient, RN notes reviewed Mode of arrival: ambulatory Limitations: no limitations - History of Present Illness Initial Comments: This a 44-year-old female presents emergency Department chief complaint of lower rib to lower back pain on the right. Patient did start complaint days ago it is worse with movement states her stated deep breath. No chest pain denies any abdominal pain no dysuria no hematuria no bowel bladder incontinence or retention no lower extremity paresthesias or saddle anesthesias. She states she is chronic pain meds that she's been taking not helping. Patient denies any fevers or chills patient offers no complaints. - Related Data Home Medications Medication Instructions Recorded Confirmed Nortriptyline HCl [Pamelor] 100 mg PO HS 01/11/17 05/29/20 traMADol HCL [Ultram] 50 mg PO QID 01/11/17 05/29/20 Probenecid [Benemid] 500 mg PO BID 02/03/17 05/29/20 Elviteg/Cob/Emtri/Tenof Alafen 1 tab PO DAILY 12/09/17 05/29/20 [Genvoya Tablet] Cholecalciferol [Vitamin D3 (25 1,000 unit PO DAILY 12/01/18 05/26/20 Mcg = 1000 Iu)] Loratadine [Claritin] 10 mg PO DAILY 12/01/18 05/29/20 Meloxicam [Mobic] 15 mg PO DAILY 12/01/18 05/29/20 Montelukast [Singulair] 10 mg PO HS 12/01/18 05/29/20 Orphenadrine [Norflex] 100 mg PO BID PRN 12/01/18 05/29/20 Previous Rx's Medication Instructions Recorded Azithromycin [Zithromax] 500 mg PO DAILY #5 tab 03/25/20 Allergies Allergy/AdvReac Type Severity Reaction Status Date / Time naproxen [From Naprosyn] Allergy Rash/Hives Verified 08/06/20 06:12 Penicillins Allergy Swelling Verified 08/06/20 06:12 sulfamethoxazole AdvReac Rash/Hives Verified 08/06/20 06:12 [From Bactrim] trimethoprim [From Bactrim] AdvReac Rash/Hives Verified 08/06/20 06:12 Review of Systems ROS Statement: Those systems with pertinent positive or pertinent negative responses have been documented in the HPI. ROS Other: All systems not noted in ROS Statement are negative. Past Medical History Past Medical History: Asthma Additional Past Medical History / Comment(s): HIV positive, complication from gallbladder surg. in Oct., ended up w/bile leak. HAVING SOME PROBLEMS WITH SWALLOWING History of Any Multi-Drug Resistant Organisms: None Reported Past Surgical History: Section, Cholecystectomy, Hernia Repair, Tubal Ligation, Uterine Ablation Past Anesthesia/Blood Transfusion Reactions: No Reported Reaction Past Psychological History: Depression Smoking Status: Current every day smoker Past Alcohol Use History: None Reported Past Drug Use History: Marijuana - Past Family History Mother Family Medical History: Cancer General Exam Limitations: no limitations General appearance: alert, in no apparent distress Head exam: Present: atraumatic, normocephalic, normal inspection Eye exam: Present: normal appearance, PERRL, EOMI. Absent: scleral icterus, conjunctival injection, periorbital swelling Neck exam: Present: normal inspection, full ROM. Absent: tenderness, meningismus, lymphadenopathy Respiratory exam: Present: normal lung sounds bilaterally. Absent: respiratory distress, wheezes, rales, rhonchi, stridor Cardiovascular Exam: Present: regular rate, normal rhythm, normal heart sounds. Absent: systolic murmur, diastolic murmur, rubs, gallop, clicks GI/Abdominal exam: Present: soft, normal bowel sounds. Absent: distended, ten derness, guarding, rebound, rigid Back exam: Present: full ROM, tenderness (Right lumbar to lower thoracic), CVA tenderness (R). Absent: CVA tenderness (L) Neurological exam: Present: alert Course Vital Signs 08/06/20 08/06/20 08/06/20 06:10 07:37 09:10 Temperature 97.9 F 97.5 F L Pulse Rate 94 80 80 Respiratory 20 20 18 Rate Blood Pressure 161/83 131/79 153/91 O2 Sat by Pulse 99 99 98 Oximetry Medical Decision Making - Medical Decision Making CT of the chest, abdomen were obtained with no acute findings other than mild splenomegaly patient's pains in the right flank below back region this may be muscle skeletal patient did have CT hematuria but no signs of urinary tract infection, no CT evidence of kidney stone. Patient's pain is improved patient is resting comfortably when reevaluated and updated and results. Patient will have close follow-up return parameters were discussed. Patient has pain medications and muscle relaxers at home. - Lab Data Result diagrams: 08/06/20 06:37 08/06/20 06:37 Lab Results 08/06/20 08/06/20 08/06/20 Range/Units 06:37 06:37 06:37 WBC 11.4 H (3.8-10.6) k/uL RBC 3.94 (3.80-5.40) m/uL Hgb 12.4 (11.4-16.0) gm/dL Hct 35.4 (34.0-46.0) % MCV 89.9 (80.0-100.0) fL MCH 31.5 (25.0-35.0) pg MCHC 35.0 (31.0-37.0) g/dL RDW 12.6 (11.5-15.5) % Plt Count 298 (150-450) k/uL MPV 6.1 Neutrophils % 75 % Lymphocytes % 13 % Monocytes % 5 % Eosinophils % 6 % Basophils % 1 % Neutrophils # 8.6 H (1.3-7.7) k/uL Lymphocytes # 1.5 (1.0-4.8) k/uL Monocytes # 0.5 (0-1.0) k/uL Eosinophils # 0.7 (0-0.7) k/uL Basophils # 0.1 (0-0.2) k/uL D-Dimer 3.10 H (<0.60) mg/L FEU Sodium (137-145) mmol/L Potassium (3.5-5.1) mmol/L Chloride (98-107) mmol/L Carbon Dioxide (22-30) mmol/L Anion Gap mmol/L BUN (7-17) mg/dL Creatinine (0.52-1.04) mg/dL Est GFR (CKD-EPI)AfAm (>60 ml/min/1.73 sqM) Est GFR (CKD-EPI)NonAf (>60 ml/min/1.73 sqM) Glucose (74-99) mg/dL Plasma Lactic Acid Fredrick (0.7-2.0) mmol/L Calcium (8.4-10.2) mg/dL Total Bilirubin (0.2-1.3) mg/dL AST (14-36) U/L ALT (4-34) U/L Alkaline Phosphatase (38-126) U/L Troponin I (0.000-0.034) ng/mL Total Protein (6.3-8.2) g/dL Albumin (3.5-5.0) g/dL Amylase (30-110) U/L Lipase (23-300) U/L Urine Color Yellow Urine Appearance Clear (Clear) Urine pH 6.0 (5.0-8.0) Ur Specific Hixson 1.025 (1.001-1.035) Urine Protein Trace H (Negative) Urine Glucose (UA) Negative (Negative) Urine Ketones Negative (Negative) Urine Blood Small H (Negative) Urine Nitrite Negative (Negative) Urine Bilirubin Negative (Negative) Urine Urobilinogen 2.0 (<2.0) mg/dL Ur Leukocyte Esterase Negative (Negative) Urine RBC 26 H (0-5) /hpf Urine WBC 1 (0-5) /hpf Ur Squamous Epith Cells 3 (0-4) /hpf Urine Mucus Moderate H (None) /hpf 08/06/20 08/06/20 08/06/20 Range/Units 06:37 06:37 06:37 WBC (3.8-10.6) k/uL RBC (3.80-5.40) m/uL Hgb (11.4-16.0) gm/dL Hct (34.0-46.0) % MCV (80.0-100.0) fL MCH (25.0-35.0) pg MCHC (31.0-37.0) g/dL RDW (11.5-15.5) % Plt Count (150-450) k/uL MPV Neutrophils % % Lymphocytes % % Monocytes % % Eosinophils % % Basophils % % Neutrophils # (1.3-7.7) k/uL Lymphocytes # (1.0-4.8) k/uL Monocytes # (0-1.0) k/uL Eosinophils # (0-0.7) k/uL Basophils # (0-0.2) k/uL D-Dimer (<0.60) mg/L FEU Sodium 140 (137-145) mmol/L Potassium 3.9 (3.5-5.1) mmol/L Chloride 104 (98-107) mmol/L Carbon Dioxide 25 (22-30) mmol/L Anion Gap 11 mmol/L BUN 16 (7-17) mg/dL Creatinine 0.53 (0.52-1.04) mg/dL Est GFR (CKD-EPI)AfAm >90 (>60 ml/min/1.73 sqM) Est GFR (CKD-EPI)NonAf >90 (>60 ml/min/1.73 sqM) Glucose 111 H (74-99) mg/dL Plasma Lactic Acid Fredrick 1.3 (0.7-2.0) mmol/L Calcium 9.0 (8.4-10.2) mg/dL Total Bilirubin 0.3 (0.2-1.3) mg/dL AST 19 (14-36) U/L ALT 12 (4-34) U/L Alkaline Phosphatase 94 (38-126) U/L Troponin I <0.012 (0.000-0.034) ng/mL Total Protein 6.9 (6.3-8.2) g/dL Albumin 4.1 (3.5-5.0) g/dL Amylase 39 (30-110) U/L Lipase 18 L (23-300) U/L Urine Color Urine Appearance (Clear) Urine pH (5.0-8.0) Ur Specific Hixson (1.001-1.035) Urine Protein (Negative) Urine Glucose (UA) (Negative) Urine Ketones (Negative) Urine Blood (Negative) Urine Nitrite (Negative) Urine Bilirubin (Negative) Urine Urobilinogen (<2.0) mg/dL Ur Leukocyte Esterase (Negative) Urine RBC (0-5) /hpf Urine WBC (0-5) /hpf Ur Squamous Epith Cells (0-4) /hpf Urine Mucus (None) /hpf Disposition Clinical Impression: Back pain, Flank pain Disposition: HOME SELF-CARE Condition: Stable Instructions (If sedation given, give patient instructions): Back Pain (ED) Additional Instructions: Please return to the Emergency Department if symptoms worsen or any other concerns. Is patient prescribed a controlled substance at d/c from ED?: No Referrals: Juanita Angel MD [Primary Care Provider] - 1-2 days Time of Disposition: 10:01
[2020-08-06 07:01] LABS: Basophils # (A) 0.1 k/uL (0-0.2); Basophils % (A) 1 %; Eosinophils # (A) 0.7 k/uL (0-0.7); Eosinophils % (A) 6 %; HCT 35.4 % (34.0-46.0); HGB 12.4 gm/dL (11.4-16.0); Lymphocytes # (A) 1.5 k/uL (1.0-4.8); Lymphocytes % (A) 13 %; MCH 31.5 pg (25.0-35.0); MCV 89.9 fL (80.0-100.0); Mean Platelet Volume 6.1; Monocytes # (A) 0.5 k/uL (0-1.0); Monocytes % (A) 5 %; Neutrophils # (A) 8.6 k/uL (1.3-7.7); Neutrophils % (A) 75 %; Platelet Count 298 k/uL (150-450); RBC 3.94 m/uL (3.80-5.40); RDW 12.6 % (11.5-15.5); WBC 11.4 k/uL (3.8-10.6)
[2020-08-06 07:11] LABS: ALT 12 U/L (4-34); AST 19 U/L (14-36); African American GFR (CKD) >90 (>60 ml/min/1.73 sqM); Albumin 4.1 g/dL (3.5-5.0); Alkaline Phosphatase 94 U/L (38-126); Amylase 39 U/L (30-110); Anion Gap 11 mmol/L; Blood Urea Nitrogen 16 mg/dL (7-17); Carbon Dioxide 25 mmol/L (22-30); Chloride 104 mmol/L (98-107); Glucose 111 mg/dL (74-99); Lipase 18 U/L (23-300); Non-African American GFR(CKD) >90 (>60 ml/min/1.73 sqM); Potassium 3.9 mmol/L (3.5-5.1); Sodium 140 mmol/L (137-145); Total Bilirubin 0.3 mg/dL (0.2-1.3); Total Protein 6.9 g/dL (6.3-8.2)
--- NOTE | 2020-08-06 07:39 | XR ---
EXAMINATION TYPE: XR chest 2V DATE OF EXAM: 08/06/2020 COMPARISON: 11/08/2014 INDICATION: Pain TECHNIQUE: Frontal and lateral views of the chest are obtained. FINDINGS: The heart size is normal. The pulmonary vasculature is normal. The lungs are clear. IMPRESSION: 1. No acute pulmonary process.
[2020-08-06 07:43] LABS: Appearance,Urine Clear (Clear); Bilirubin,Urine Negative (Negative); Blood,Urine Small (Negative); Color,Urine Yellow; Glucose,Urine (UA) Negative (Negative); Ketones,Urine Negative (Negative); Leukocyte Esterase,Urine Negative (Negative); Mucus,Urine Moderate /hpf; Nitrite,Urine Negative (Negative); Protein,Urine Trace (Negative); RBC,Urine 26 /hpf (0-5); Specific Gravity,Urine 1.025 (1.001-1.035); Squamous Epithelial Cell,Urine 3 /hpf (0-4); WBC,Urine 1 /hpf (0-5)
--- NOTE | 2020-08-06 09:48 | CT ---
EXAMINATION TYPE: CT abdomen pelvis wo con DATE OF EXAM: 08/06/2020 HISTORY: Hematuria. CT DLP: 885.30 mGycm. Automated Exposure Control for Dose Reduction was Utilized. TECHNIQUE: CT scan of the abdomen and pelvis is performed without oral or IV contrast. COMPARISON: NONE FINDINGS: Within the limitations of a non-contrast study, the following observations are made. LUNG BASES: No significant abnormality is appreciated. LIVER/GB: Hepatomegaly And prominent right hepatic lobe. Cholecystectomy clips. PANCREAS: No significant abnormality is seen. SPLEEN: Splenomegaly measuring 15.1 cm long axis coronal image 60. ADRENALS: No significant abnormality is seen. KIDNEYS: No renal stones or hydronephrosis is seen bilaterally. BOWEL: Normal-appearing appendix axial image 58 in the right pelvis from cecum. Suboptimal evaluation of bowel without enteric contrast. No suspicious small or large bowel dilatation. GENITAL ORGANS: Anteverted uterus. Tubal ligation clip along the left aspect. LYMPH NODES: No greater than 1cm abdominal or pelvic lymph nodes are appreciated. OSSEOUS STRUCTURES: No significant abnormality is seen. OTHER: There is left pelvic eventration or hernia prominent containing fat and portion of small bowel loop without dilatation through thinning of the rectus sheath. IMPRESSION: No renal stones or hydronephrosis is seen bilaterally. No suspicious findings seen to acc ount for patient's symptoms of hematuria. Hepatosplenomegaly is present which may warrant further non emergent clinical workup.
--- NOTE | 2020-08-06 09:51 | CT ---
EXAMINATION TYPE: CT chest angio for PE DATE OF EXAM: 08/06/2020 COMPARISON: NONE HISTORY: Back pain CT DLP: 298.20 mGycm. Automated Exposure Control for Dose Reduction was Utilized. CONTRAST: CTA scan of the thorax is performed without and with IV Contrast, patient injected with 100 ml mL of Isovue 370, pulmonary embolism protocol. MIP Images are created on CT scanner and reviewed. FINDINGS: LUNGS: Mild bibasilar linear scarring and/or atelectasis. No pleural effusion or pneumothorax seen bi laterally. No concerning pulmonary nodules or masses. MEDIASTINUM: There is some heterogeneity but there is no CT evidence for pulmonary embolism. There a re no greater than 1 cm hilar or mediastinal lymph nodes. No cardiomegaly or pericardial effusion i s seen. No thoracic aortic aneurysm or dissection. OTHER: Please refer to same day CT abdomen pelvis report for complete details on the upper abdomen. IMPRESSION: Suboptimal study without acute pulmonary embolism. No suspicious acute pulmonary process.
[2020-08-06 10:11] VITALS: BP 144/88; PULSE 84; RESP 16; TEMP 97.6
== END 2020-08-06 10:26 | disposition home or self-care (01) ==
LOC: EC 06:07
DX: M54.5 Low back pain (principal); R10.9 Unspecified abdominal pain; J45.909 Unspecified asthma, uncomplicated; F32.9 Major depressive disorder, single episode, unspecified; F12.90 Cannabis use, unspecified, uncomplicated; F17.200 Nicotine dependence, unspecified, uncomplicated; Z79.1 Long term (current) use of non-steroidal anti-inflammatories (NSAID); Z21 Asymptomatic human immunodeficiency virus [HIV] infection status; Z88.0 Allergy status to penicillin
CPT/HCPCS: 36415; 71046; 71275; 74176; 80053; 81001; 82150; 83605; 83690; 84484; 85025; 85379; 93005; 96361; 96374; 96375; 96376; 99284

== ENCOUNTER 2020-09-01 13:38 | Emergency (ER) | payer OTHER ==
[2020-09-01 13:49] VITALS: RESP 18; TEMP 98.6
[2020-09-01] MEDS ORDERED: KETOROLAC 15 MG/ML 1 ML VIAL IM STA (14:25)
[2020-09-01] MEDS ORDERED: MORPHINE SULFATE 4 MG/ML SYRINGE IM STA (14:25)
--- NOTE | 2020-09-01 14:41 | ED ---
General Adult HPI - General Chief complaint: Extremity Injury, Upper Stated complaint: lump on arm, mouth swelling Time Seen by Provider: 09/01/20 14:15 Source: patient, RN notes reviewed, old records reviewed Mode of arrival: ambulatory Limitations: no limitations - History of Present Illness Initial comments: 44-year-old female presenting for evaluation of left elbow lump, right shoulder pain, and oral ulcer. Patient has history of HIV she does follow with infectious disease. She is on antivirals. She states she's had some chronic issues including chronic recurrent aphthous ulcers and states that she believes she has one currently although it is more severe than previous. She also complains of a lump on her left elbow. She denies trauma. Denies significant pain. Denies drainage. Third complaint is right shoulder pain. She has been diagnosed with arthritis and does follow with neurology regarding chronic pain in the shoulder. No new injury. Patient states that she's got a recurrent nature to all 3 of her symptoms but her tramadol at home is not working. She has also been worked up for rheumatological conditions as well. She has an appointment with her infectious disease specialist next week and with her neurologist. - Related Data Home Medications Medication Instructions Recorded Confirmed Nortriptyline HCl [Pamelor] 100 mg PO HS 01/11/17 05/29/20 traMADol HCL [Ultram] 50 mg PO QID 01/11/17 05/29/20 Probenecid [Benemid] 500 mg PO BID 02/03/17 05/29/20 Elviteg/Cob/Emtri/Tenof Alafen 1 tab PO DAILY 12/09/17 05/29/20 [Genvoya Tablet] Cholecalciferol [Vitamin D3 (25 1,000 unit PO DAILY 12/01/18 05/26/20 Mcg = 1000 Iu)] Loratadine [Claritin] 10 mg PO DAILY 12/01/18 05/29/20 Meloxicam [Mobic] 15 mg PO DAILY 12/01/18 05/29/20 Montelukast [Singulair] 10 mg PO HS 12/01/18 05/29/20 Orphenadrine [Norflex] 100 mg PO BID PRN 12/01/18 05/29/20 Previous Rx's Medication Instructions Recorded Azithromycin [Zithromax] 500 mg PO DAILY #5 tab 03/25/20 Allergies Allergy/AdvReac Type Severity Reaction Status Date / Time naproxen [From Naprosyn] Allergy Rash/Hives Verified 09/01/20 13:49 Penicillins Allergy Swelling Verified 09/01/20 13:49 sulfamethoxazole AdvReac Rash/Hives Verified 09/01/20 13:49 [From Bactrim] trimethoprim [From Bactrim] AdvReac Rash/Hives Verified 09/01/20 13:49 Review of Systems ROS Statement: Those systems with pertinent positive or pertinent negative responses have been documented in the HPI. ROS Other: All systems not noted in ROS Statement are negative. Past Medical History Past Medical History: Asthma Additional Past Medical History / Comment(s): HIV positive, complication from gallbladder surg. in Oct., ended up w/bile leak. HAVING SOME PROBLEMS WITH SWALLOWING History of Any Multi-Drug Resistant Organisms: None Reported Past Surgical History: Section, Cholecystectomy, Hernia Repair, Tubal Ligation, Uterine Ablation Past Anesthesia/Blood Transfusion Reactions: No Reported Reaction Past Psychological History: Depression Smoking Status: Current every day smoker Past Alcohol Use History: None Reported Past Drug Use History: Marijuana - Past Family History Mother Family Medical History: Cancer General Exam Limitations: no limitations General appearance: alert, in no apparent distress Head exam: Present: atraumatic, normocephalic Eye exam: Present: normal appearance, PERRL ENT exam: Present: other (Patient has a large ulceration at the base of the tongue. There is no submandibular induration. She does have poor dentition but this does not seem to extend from a to specifically. Airway is patent. No tongue swelling.) Neck exam: Present: normal inspection. Absent: tenderness Respiratory exam: Present: normal lung sounds bilaterally. Absent: respiratory distress Cardiovascular Exam: Present: regular rate, normal rhythm GI/Abdominal exam: Present: soft. Absent: distended, tenderness, guarding Extremities exam: Present: tenderness (Patient has tenderness with range of motion of the right shoulder, some pain over the supraspinatus. Distal pulses are intact in the right upper extremity. Left elbow shows a firm mass. Range of motion at the left elbow is within normal limits. There is no overlying skin changes or signs of infe) Neurological exam: Present: alert, oriented X3, CN II-XII intact. Absent: motor sensory deficit Course Vital Signs 09/01/20 13:47 Temperature 98.6 F Pulse Rate 91 Respiratory 18 Rate Blood Pressure 142/90 O2 Sat by Pulse 97 Oximetry - Reevaluation(s) Reevaluation #1: 09/01/20 14:41 Patient has a pain contract and cannot be prescribed narcotics. Medical Decision Making - Medical Decision Making 44-year-old female with several complaints, all 3 complaints are chronic in nature. She's had recurrent aphthous ulcers and does appear to have a large aphthous ulcer. Her right shoulder pain is been present for the past 2 years and she has had pain management with neurology. She may require MRI for rotator cuff injury. No new trauma to require x-rays today. The lump on her left elbow does not appear infectious. It is not traumatic. She states she's had these in the past in her knees and left elbow but has not been told a specific diagnosis. Ultimately the patient is given pain control the emergency department, she has good outpatient follow-up both with her neurologist and with her infectious disease physician. Return parameters are discussed. Disposition Clinical Impression: Right shoulder pain, Aphthous ulcer Disposition: HOME SELF-CARE Condition: Good Instructions (If sedation given, give patient instructions): Shoulder Pain (ED), Canker Sores (ED) Is patient prescribed a controlled substance at d/c from ED?: No Referrals: Juanita Angel MD [Primary Care Provider] - 1-2 days Chandrika Cardona MD [STAFF PHYSICIAN] - 1-2 days Bere Freeman MD [Medical Doctor] - 1-2 days Time of Disposition: 14:40
[2020-09-01 14:48] VITALS: BP 130/88; PULSE 84
== END 2020-09-01 14:52 | disposition home or self-care (01) ==
LOC: EC 13:38
DX: M25.511 Pain in right shoulder (principal); K12.0 Recurrent oral aphthae; R22.32 Localized swelling, mass and lump, left upper limb; J45.909 Unspecified asthma, uncomplicated; G89.29 Other chronic pain; F32.9 Major depressive disorder, single episode, unspecified; F12.90 Cannabis use, unspecified, uncomplicated; F17.200 Nicotine dependence, unspecified, uncomplicated; Z21 Asymptomatic human immunodeficiency virus [HIV] infection status; Z79.1 Long term (current) use of non-steroidal anti-inflammatories (NSAID); Z88.0 Allergy status to penicillin; Z88.1 Allergy status to other antibiotic agents; Z88.2 Allergy status to sulfonamides; Z88.6 Allergy status to analgesic agent
CPT/HCPCS: 99283; 96372 ×2; J2270; J1885

== ENCOUNTER 2022-08-11 09:22 | Day surgery (SDC) | payer MEDICARE, OTHER ==
[2022-08-08 12:09] VITALS: BMI 30.2
[2022-08-11] MEDS: LACTATED RINGERS 1,000 ML IV SCH ×2 (09:38→09:50)
[2022-08-11] MEDS ORDERED: PROPOFOL 10 MG/ML 20 ML VIAL IV ONE (09:58)
[2022-08-11 09:59] VITALS: TEMP 97.4
--- NOTE | 2022-08-11 10:02 | P.GSHP ---
History of Present Illness H&P Date: 08/11/22 Chief Complaint: Screening colonoscopy This a 46-year-old female who presents today for screening colonoscopy. She denies a significant GI complaints Past Medical History Past Medical History: Asthma, Skin Disorder Additional Past Medical History / Comment(s): HIV positive. Sores on skin after being in the sun. History of Any Multi-Drug Resistant Organisms: None Reported Past Surgical History: Section, Cholecystectomy, Hernia Repair, Tubal Ligation, Uterine Ablation Additional Past Surgical History / Comment(s): Hernia repair X2. Past Anesthesia/Blood Transfusion Reactions: No Reported Reaction Past Psychological History: Depression Smoking Status: Former smoker, Vaper Past Alcohol Use History: None Reported Additional Past Alcohol Use History / Comment(s): SMOKED 1/2 PPD-SINCE AGE 19, quit in 2020, vapes now. Past Drug Use History: Marijuana Additional Drug Use History / Comment(s): Quit using Marijuana 3 weeks ago. Aware no use 24 hrs prior to procedure. - Past Family History Mother Family Medical History: Cancer Medications and Allergies Home Medications Medication Instructions Recorded Confirmed Type Nortriptyline HCl [Pamelor] 100 mg PO HS 01/11/17 08/11/22 History traMADol HCL [Ultram] 50 mg PO QID 01/11/17 08/11/22 History Probenecid [Benemid] 500 mg PO BID 02/03/17 08/11/22 History Elviteg/Cob/Emtri/Tenof Alafen 1 tab PO DAILY 12/09/17 08/11/22 History [Genvoya Tablet] Cholecalciferol [Vitamin D3 (25 1,000 unit PO DAILY 12/01/18 08/11/22 History Mcg = 1000 Iu)] Loratadine [Claritin] 10 mg PO DAILY 12/01/18 08/11/22 History Meloxicam [Mobic] 15 mg PO DAILY 12/01/18 08/11/22 History Montelukast [Singulair] 10 mg PO HS 12/01/18 08/11/22 History Orphenadrine [Norflex] 100 mg PO BID PRN 12/01/18 08/11/22 History DULoxetine HCL [Cymbalta] 60 mg PO BID 08/08/22 08/11/22 History Tiotropium 18 Mcg/Puff [Spiriva] 2 puff INHALATION QAM 08/08/22 08/11/22 History Allergies Allergy/AdvReac Type Severity Reaction Status Date / Time naproxen [From Naprosyn] Allergy Rash/Hives Verified 08/11/22 09:43 Penicillins Allergy Swelling Verified 08/11/22 09:43 sulfamethoxazole AdvReac Rash/Hives Verified 08/11/22 09:43 [From Bactrim] trimethoprim [From Bactrim] AdvReac Rash/Hives Verified 08/11/22 09:43 Surgical - Exam Vital Signs Temp Pulse Resp BP Pulse Ox 97.4 F L 75 16 182/90 95 08/11/22 09:50 08/11/22 09:50 08/11/22 09:50 08/11/22 09:50 08/11/22 09:50 - General well developed, well nourished, no distress - Eyes PERRL - ENT normal pinna, normal nares - Neck no masses - Respiratory normal expansion - Cardiovascular Rhythm: regular - Abdomen Abdomen: soft, non tender Assessment and Plan Assessment: We'll perform screening colonoscopy
--- NOTE | 2022-08-11 10:19 | P.OP ---
Date of Procedure: 08/11/22 Preoperative Diagnosis: Screening colonoscopy Postoperative Diagnosis: Mild diverticulosis Procedure(s) Performed: Colonoscopy Anesthesia: MAC Surgeon: Juan Nevarez Pathology: none sent Condition: stable Disposition: PACU Description of Procedure: The patient's placed on the endoscopy table in the lateral position. She received IV sedation. Next, digital rectal exam was performed. This revealed no abnormalities. The flexible colonoscope was then placed patient anus and passed throughout the entire colon. The ileocecal valve was visualized. The cecum, ascending and transverse colon appeared normal. In the descending; was mild diverticular changes. Scope was brought back the rectum and this appeared normal. Scope withdrawn for patient.
[2022-08-11 10:35] VITALS: BP 135/86; PULSE 68; RESP 16
== END 2022-08-11 11:09 | disposition home or self-care (01) ==
LOC: ORWHC2ENDO 09:22
PROVIDERS: ATTEND Surgery
DX: Z12.11 Encounter for screening for malignant neoplasm of colon (principal); K57.30 Diverticulosis of large intestine without perforation or abscess without bleeding; J45.909 Unspecified asthma, uncomplicated; B20 Human immunodeficiency virus [HIV] disease; F17.290 Nicotine dependence, other tobacco product, uncomplicated; F12.90 Cannabis use, unspecified, uncomplicated; Z98.891 History of uterine scar from previous surgery; Z90.49 Acquired absence of other specified parts of digestive tract; Z98.51 Tubal ligation status; Z98.890 Other specified postprocedural states; Z80.8 Family history of malignant neoplasm of other organs or systems; Z79.1 Long term (current) use of non-steroidal anti-inflammatories (NSAID); Z79.899 Other long term (current) drug therapy; Z88.6 Allergy status to analgesic agent; Z88.0 Allergy status to penicillin; Z88.2 Allergy status to sulfonamides; Z88.1 Allergy status to other antibiotic agents
CPT/HCPCS: J2704; G0121; 45378